=== PATIENT | male | born 1955 | race Two or more races ===

== ENCOUNTER → 2020-01-15 | Emergency (ER) | payer OTHER ==
[~2020-01-15] VITALS: Ht 180.3 cm; Wt 127.0 kg
[~2020-01-15] MED LIST: AMLO10TA13 PO; DICL75TA2 PO; FLUCONAZOLE 200MG/100ML 100 ML IV ONE; GLIP10TA9 PO; HYDR25TA4 PO; IRBE300T26 PO; METO-158 PO; OMEP20TA44 PO; POTASSIUM EFFERVESENT TAB 25 MEQ PO ONE; SITA50TA13 PO; cefTRIAXone 1GM/50ML D5W 50 ML IV ONE
[2020-01-15 13:07] LABS: Basophils # (auto) 0 10 ^3/uL (0-0.2); Basophils % (auto) 0.4 % (0.0-2.0); Eosinophils # (auto) 0.1 10 ^3/uL (0-0.8); Hematocrit 37.7 % (41.0-53.0); Hemoglobin 12.8 g/dL (13.5-17.5); Mean Corpuscular Hemoglobin 29.8 pg (28.0-32.0); Mean Corpuscular Hgb Conc. 33.9 g/dL (32.0-36.0); Mean Corpuscular Volume 87.8 fL (80.0-100.0); Monocytes # (auto) 0.5 10 ^3/uL (0-1.3); Monocytes % (auto) 8.2 % (0.0-12.0); Neutrophils # (auto) 4.2 10 ^3/uL (1.6-8.6); Neutrophils % (auto) 73.4 % (37.0-80.0); Nucleated Red Blood Cells % 0.2 %; Platelet Count (auto) 144 10^3/uL (140-450); Red Blood Cells 4.29 10^6/uL (4.5-5.90); White Blood Cell 5.7 10^3/uL (4.4-10.8)
[2020-01-15 13:25] LABS: Albumin 2.7 g/dL (3.4-5.0); Calcium 8.4 mg/dL (8.5-10.1); Potassium 3.2 mmol/L (3.5-5.1)
[2020-01-15 13:28] LABS: BUN/Creatinine Ratio 14.1; Total Protein 6.4 g/dL (6.4-8.2)
[2020-01-15 14:16] LABS: Urine Bacteria NONE SEEN /hpf (None Seen); Urine Blood TRACE /uL (Negative); Urine Specific Gravity 1.012 (1.001-1.035); Urine WBC 1 /hpf (0 - 3)
[2020-01-15 14:52] VITALS: BP 160/81
== END | disposition home or self-care (01) ==
LOC: ER 10:42
DX: N45.1 Epididymitis (principal); B35.6 Tinea cruris; B37.89 Other sites of candidiasis; E11.21 Type 2 diabetes mellitus with diabetic nephropathy; E11.65 Type 2 diabetes mellitus with hyperglycemia; I10 Essential (primary) hypertension; E87.6 Hypokalemia; E78.5 Hyperlipidemia, unspecified; E46 Unspecified protein-calorie malnutrition; Z68.31 Body mass index [BMI] 31.0-31.9, adult; Z87.891 Personal history of nicotine dependence; Z79.899 Other long term (current) drug therapy
CPT/HCPCS: 36415; 76870; 80053; 81001; 83605; 85025; 87040; 96365; 96367; 99284; J0696; J1450

== ENCOUNTER 2020-10-27 08:27 | Observation (INO) | payer OTHER ==
[~2020-10-27] VITALS: Ht 170.2 cm; Wt 133.5 kg
[~2020-10-27 08:27] MED LIST changes: +AMLO-496 PO; -AMLO10TA13 PO; -FLUCONAZOLE 200MG/100ML 100 ML IV ONE; -IRBE300T26 PO; +IRBE300T79 PO; -POTASSIUM EFFERVESENT TAB 25 MEQ PO ONE; -cefTRIAXone 1GM/50ML D5W 50 ML IV ONE
[2020-10-27 09:00] LABS: Basophils # (auto) 0.1 10 ^3/uL (0-0.2); Basophils % (auto) 0.6 % (0.0-2.0); Eosinophils # (auto) 0 10 ^3/uL (0-0.8); Eosinophils % (auto) 0.5 % (0.0-7.0); Hematocrit 36.2 % (41.0-53.0); Hemoglobin 12.2 g/dL (13.5-17.5); Lymphocytes % (auto) 11.4 % (10.0-50.0); Mean Corpuscular Hgb Conc. 33.7 g/dL (32.0-36.0); Mean Corpuscular Volume 89.2 fL (80.0-100.0); Monocytes # (auto) 0.6 10 ^3/uL (0-1.3); Monocytes % (auto) 6.6 % (0.0-12.0); Neutrophils # (auto) 6.9 10 ^3/uL (1.6-8.6); Neutrophils % (auto) 80.9 % (37.0-80.0); Nucleated Red Blood Cells % 0.1 %; Platelet Count (auto) 180 10^3/uL (140-450); Red Blood Cells 4.06 10^6/uL (4.5-5.90); Red Cell Distribution Width 15.6 % (11.8-14.3); White Blood Cell 8.5 10^3/uL (4.4-10.8)
[2020-10-27] MEDS ORDERED: cefTRIAXone 1GM/50ML D5W 50 ML IV ONE (09:00)
[2020-10-27] MEDS ORDERED: AZITHROMYCIN 500MG/ 250ML 250 ML IV ONE (09:00)
[2020-10-27 09:14] LABS: Albumin 3.3 g/dL (3.4-5.0); Calcium 8.3 mg/dL (8.5-10.1); Magnesium 2.3 mg/dL (1.6-2.6); Potassium 3.4 mmol/L (3.5-5.1)
[2020-10-27 09:17] LABS: Lactic Acid w/Reflex 2.8 mmol/L (0.4-2.0)
[2020-10-27 09:22] LABS: INR 1.03 (0.9-1.15); Partial Thromboplastin Time 23.8 sec (23.0-31.2)
[2020-10-27 09:23] LABS: BUN/Creatinine Ratio 15.1; Bilirubin, Total 0.6 mg/dL (0.2-1.0); CRP High Sensitivity 1.56 mg/dL (< 0.3); Total Protein 7.2 g/dL (6.4-8.2)
[2020-10-27] MEDS ORDERED: DEXTROSE (50%) 50ML SYRG IV PRN (11:30)
[2020-10-27] MEDS ORDERED: MORPHINE SULF INJ 2 MG/ML SYRINGE 1ML IV PRN (11:30)
[2020-10-27] MEDS ORDERED: NITROGLYCERIN 0.4 MG SL TAB SL PRN (11:30)
[2020-10-27] MEDS ORDERED: hydrALAZINE HCL 20 MG/ML VL IV PRN (11:45)
[2020-10-27] MEDS ORDERED: FUROSEMIDE 40 MG/4 ML VIAL IV ONE (11:45)
[2020-10-27] MEDS: InsuLIN REG 1unit/0.01ml Soln (100units/ml) SC SCH ×3 (12:14→23:34)
[2020-10-27] MEDS: ACCU-CHEK COMFORT CURVE STRIP VI SCH ×3 (12:14→22:00)
[2020-10-27] MEDS ORDERED: MECL-111 PO (12:47)
[2020-10-27 17:00] VITALS: BP 151/88
[2020-10-27 21:47] VITALS: BP 149/68
[2020-10-28 05:08] VITALS: BP 153/72
[2020-10-28 06:13] LABS: Basophils # (auto) 0 10 ^3/uL (0-0.2); Basophils % (auto) 0.3 % (0.0-2.0); Eosinophils # (auto) 0.1 10 ^3/uL (0-0.8); Eosinophils % (auto) 0.7 % (0.0-7.0); Hematocrit 33.5 % (41.0-53.0); Hemoglobin 11.6 g/dL (13.5-17.5); Lymphocytes # (auto) 0.8 10 ^3/uL (0.4-5.4); Lymphocytes % (auto) 11.3 % (10.0-50.0); Mean Corpuscular Hemoglobin 30.6 pg (28.0-32.0); Mean Corpuscular Hgb Conc. 34.6 g/dL (32.0-36.0); Mean Corpuscular Volume 88.6 fL (80.0-100.0); Monocytes # (auto) 0.5 10 ^3/uL (0-1.3); Monocytes % (auto) 7.8 % (0.0-12.0); Neutrophils # (auto) 5.5 10 ^3/uL (1.6-8.6); Neutrophils % (auto) 79.9 % (37.0-80.0); Nucleated Red Blood Cells % 0.1 %; Platelet Count (auto) 170 10^3/uL (140-450); Red Blood Cells 3.78 10^6/uL (4.5-5.90); Red Cell Distribution Width 15.1 % (11.8-14.3); White Blood Cell 6.9 10^3/uL (4.4-10.8)
[2020-10-28 06:33] LABS: Calcium 8.3 mg/dL (8.5-10.1); Potassium 3.3 mmol/L (3.5-5.1)
[2020-10-28 06:35] LABS: BUN/Creatinine Ratio 17.9
[2020-10-28] MEDS: InsuLIN REG 1unit/0.01ml Soln (100units/ml) SC SCH ×4 (06:49→21:33)
[2020-10-28] MEDS: ACCU-CHEK COMFORT CURVE STRIP VI SCH ×4 (06:49→21:33)
[2020-10-28 08:00] VITALS: BP 155/74
[2020-10-28] MEDS: LOSARTAN POTASSIUM 50 MG TAB PO SCH (08:42)
[2020-10-28] MEDS: cefTRIAXone 1GM/50ML D5W 50 ML IV SCH (08:42)
[2020-10-28] MEDS: AZITHROMYCIN 500MG/ 250ML 250 ML IV SCH (08:42)
[2020-10-28] MEDS: HCTZ 25 MG TAB PO SCH (08:43)
[2020-10-28] MEDS: METOPROLOL TARTRATE 50 MG TAB PO SCH (08:43)
[2020-10-28] MEDS: PANTOPRAZOLE 40 MG TAB PO SCH (08:44)
[2020-10-28] MEDS: amLODIPine BESYLATE 5 MG TAB PO SCH (08:44)
[2020-10-28 09:00] VITALS: BP 155/74
[2020-10-28 12:37] VITALS: BP 151/61
[2020-10-28 16:38] VITALS: BP 179/77
[2020-10-28 22:00] VITALS: BP 143/65
[2020-10-29 05:00] VITALS: BP 138/77
[2020-10-29] MEDS ORDERED: METOPROLOL TARTRATE 50 MG TAB PO ONE (05:00)
[2020-10-29 06:00] LABS: Calcium 8.5 mg/dL (8.5-10.1); Potassium 3.3 mmol/L (3.5-5.1)
[2020-10-29 06:03] LABS: BUN/Creatinine Ratio 14.3
[2020-10-29 06:19] LABS: Basophils # (auto) 0 10 ^3/uL (0-0.2); Basophils % (auto) 0.4 % (0.0-2.0); Eosinophils # (auto) 0 10 ^3/uL (0-0.8); Eosinophils % (auto) 0.5 % (0.0-7.0); Hematocrit 34.8 % (41.0-53.0); Hemoglobin 12.2 g/dL (13.5-17.5); Lymphocytes % (auto) 16.5 % (10.0-50.0); Mean Corpuscular Hemoglobin 30.7 pg (28.0-32.0); Mean Corpuscular Volume 87.7 fL (80.0-100.0); Monocytes # (auto) 0.5 10 ^3/uL (0-1.3); Monocytes % (auto) 9.1 % (0.0-12.0); Neutrophils # (auto) 4.3 10 ^3/uL (1.6-8.6); Neutrophils % (auto) 73.5 % (37.0-80.0); Platelet Count (auto) 179 10^3/uL (140-450); Red Blood Cells 3.97 10^6/uL (4.5-5.90); Red Cell Distribution Width 15.2 % (11.8-14.3); White Blood Cell 5.8 10^3/uL (4.4-10.8)
[2020-10-29] MEDS: InsuLIN REG 1unit/0.01ml Soln (100units/ml) SC SCH ×2 (06:19→11:30)
[2020-10-29] MEDS: ACCU-CHEK COMFORT CURVE STRIP VI SCH ×2 (06:19→11:30)
[2020-10-29 08:00] VITALS: BP 140/80
[2020-10-29 09:00] VITALS: BP 140/80
[2020-10-29] MEDS: amLODIPine BESYLATE 5 MG TAB PO SCH (10:35)
[2020-10-29] MEDS: PANTOPRAZOLE 40 MG TAB PO SCH (10:36)
[2020-10-29] MEDS: METOPROLOL TARTRATE 50 MG TAB PO SCH (10:37)
[2020-10-29] MEDS: HCTZ 25 MG TAB PO SCH (10:38)
[2020-10-29] MEDS: LOSARTAN POTASSIUM 50 MG TAB PO SCH (10:38)
[2020-10-29] MEDS: AZITHROMYCIN 500MG/ 250ML 250 ML IV SCH (10:39)
[2020-10-29] MEDS: cefTRIAXone 1GM/50ML D5W 50 ML IV SCH (10:40)
[2020-10-29 13:11] VITALS: BP 137/73
[2020-10-29 17:00] VITALS: BP 120/83
[2020-10-29 18:11] VITALS: BP 120/83
== END 2020-10-29 19:00 | disposition home or self-care (01) ==
LOC: ER 08:27 → TELE 08:28 → TELE-EAST 12:40 → TELE-CENTR 17:50
PROVIDERS: ADMIT Internal Medicine; ATTEND Internal Medicine
DX: J90 Pleural effusion, not elsewhere classified (principal); Z20.822 Contact with and (suspected) exposure to COVID-19; J18.9 Pneumonia, unspecified organism; J96.01 Acute respiratory failure with hypoxia; J96.02 Acute respiratory failure with hypercapnia; E66.01 Morbid (severe) obesity due to excess calories; E11.9 Type 2 diabetes mellitus without complications; E78.5 Hyperlipidemia, unspecified; I11.0 Hypertensive heart disease with heart failure; I50.9 Heart failure, unspecified; Z87.891 Personal history of nicotine dependence; Z85.528 Personal history of other malignant neoplasm of kidney; Z90.5 Acquired absence of kidney; Z79.84 Long term (current) use of oral hypoglycemic drugs; Z79.899 Other long term (current) drug therapy; Z68.42 Body mass index [BMI] 45.0-49.9, adult
CPT/HCPCS: 36415; 36600; 71045; 71250; 76942; 80048; 80053; 82728; 82805; 82962; 83605; 83615; 83735; 83880; 83986; 84484; 85025; 85610; 85730; 86141; 87040; 87205; 87426; 89051; 93005; 96365; 96366; 96368; 96372; 96375; 99291; C1729; G0378; J0360; J0456; J0696; J1815; J1940; J7030; U0003

== ENCOUNTER 2021-04-03 00:20 | Observation (INO) | payer OTHER ==
[~2021-04-03] VITALS: Ht 170.2 cm; Wt 58.6 kg
[~2021-04-03 00:20] MED LIST changes: +MECL-111 PO
[2021-04-03 01:08] LABS: Basophils # (auto) 0 10 ^3/uL (0-0.2); Basophils % (auto) 0.2 % (0.0-2.0); Eosinophils # (auto) 0 10 ^3/uL (0-0.8); Eosinophils % (auto) 0.3 % (0.0-7.0); Hematocrit 37.7 % (41.0-53.0); Hemoglobin 13.2 g/dL (13.5-17.5); Lymphocytes % (auto) 10.6 % (10.0-50.0); Mean Corpuscular Hemoglobin 31.6 pg (28.0-32.0); Mean Corpuscular Hgb Conc. 34.9 g/dL (32.0-36.0); Mean Corpuscular Volume 90.5 fL (80.0-100.0); Monocytes # (auto) 0.4 10 ^3/uL (0-1.3); Monocytes % (auto) 4.6 % (0.0-12.0); Neutrophils # (auto) 7.7 10 ^3/uL (1.6-8.6); Neutrophils % (auto) 84.3 % (37.0-80.0); Nucleated Red Blood Cells % 0.1 %; Red Blood Cells 4.16 10^6/uL (4.5-5.90); Red Cell Distribution Width 15.8 % (11.8-14.3); White Blood Cell 9.1 10^3/uL (4.4-10.8)
[2021-04-03 01:25] LABS: Albumin 2.9 g/dL (3.4-5.0); BUN/Creatinine Ratio 19.4; Calcium 8.6 mg/dL (8.5-10.1); Magnesium 2.2 mg/dL (1.6-2.6); Potassium 3.7 mmol/L (3.5-5.1)
[2021-04-03 01:30] LABS: Bilirubin, Total 0.8 mg/dL (0.2-1.0); Total Protein 6.7 g/dL (6.4-8.2)
[2021-04-03 03:59] LABS: Urine Bacteria NONE SEEN /hpf (None Seen); Urine Blood TRACE /uL (Negative); Urine Specific Gravity 1.019 (1.001-1.035); Urine WBC 2 /hpf (0 - 3)
[2021-04-03] MEDS ORDERED: ASPirin 325 MG TAB PO ONE (04:30)
[2021-04-03] MEDS: ALBUTEROL SULF 2.5 MG/0.5ML(0.5%) NEB SOLN NEB SCH ×2 (06:00→12:16)
[2021-04-03] MEDS ORDERED: ALBUMIN 25% 100 ML IV ONE (06:00)
[2021-04-03] MEDS ORDERED: NITROGLYCERIN 0.4 MG SL TAB SL PRN (06:00)
[2021-04-03] MEDS: IPRATROPIUM BROM 0.5 MG/2.5ML INH SOL NEB SCH ×2 (06:00→12:16)
[2021-04-03] MEDS ORDERED: DEXTROSE (50%) 50ML SYRG IV PRN (06:00)
[2021-04-03] MEDS ORDERED: ONDANSETRON HCL 4 MG/2 ML VIAL IV PRN (06:00)
[2021-04-03] MEDS ORDERED: MORPHINE SULFATE INJECTION 2 MG/ML SYRG IV PRN (06:00)
[2021-04-03] MEDS: FUROSEMIDE 40 MG/4 ML VIAL IV SCH ×2 (06:00→14:30)
[2021-04-03 06:18] VITALS: BP 154/80
[2021-04-03] MEDS: InsuLIN REG 1unit/0.01ml Soln (100units/ml) SC SCH ×2 (07:00→12:26)
[2021-04-03] MEDS: ACCU-CHEK COMFORT CURVE STRIP VI SCH ×2 (07:23→12:26)
[2021-04-03 08:38] LABS: INR 1.04 (0.9-1.15)
[2021-04-03] MEDS ORDERED: ENOXAPARIN SOD 40 MG/0.4 ML SYRINGE SC SCH (10:00)
[2021-04-03] MEDS ORDERED: METOPROLOL TARTRATE 50 MG TAB PO SCH (10:00)
[2021-04-03] MEDS ORDERED: HCTZ 25 MG TAB PO SCH (10:00)
[2021-04-03] MEDS ORDERED: amLODIPine BESYLATE 5 MG TAB PO SCH (10:00)
[2021-04-03] MEDS: levoFLOXacin 500MG 100 ML IV SCH ×2 (11:42→12:21)
[2021-04-03 14:31] VITALS: BP 161/74
[2021-04-03] MEDS ORDERED: InsuLIN REG 1unit/0.01ml Soln (100units/ml) SC SCH (22:00)
== END 2021-04-03 14:50 | disposition home or self-care (01) ==
LOC: ER 00:22 → TELE 05:47 → INTOOBSV 05:47 → TELE 14:50
PROVIDERS: ADMIT Internal Medicine; ATTEND Internal Medicine
DX: J90 Pleural effusion, not elsewhere classified (principal); Z20.822 Contact with and (suspected) exposure to COVID-19; R77.8 Other specified abnormalities of plasma proteins; R07.89 Other chest pain; R06.02 Shortness of breath; I11.9 Hypertensive heart disease without heart failure; E11.9 Type 2 diabetes mellitus without complications; E78.5 Hyperlipidemia, unspecified; E66.01 Morbid (severe) obesity due to excess calories; D84.9 Immunodeficiency, unspecified; Z79.84 Long term (current) use of oral hypoglycemic drugs; Z87.891 Personal history of nicotine dependence; Z68.20 Body mass index [BMI] 20.0-20.9, adult
CPT/HCPCS: 36415; 71045; 71250; 76604; 76942; 80053; 81001; 82962; 83605; 83735; 83880; 83986; 84484; 85025; 85379; 85610; 87205; 87426; 88104; 88305; 88342; 89051; 93005; 93306; 94640; 96365; 96366; 96367; 96372; 96375; 99285; C1729; C9803; G0378; J1650; J1940; J1956; J7644; P9047; U0003

== ENCOUNTER 2021-09-25 18:56 | Observation (INO) | payer OTHER ==
[~2021-09-25] VITALS: Ht 180.3 cm; Wt 135.6 kg
[2021-09-25 21:19] LABS: Basophils # (auto) 0 10 ^3/uL (0-0.2); Basophils % (auto) 0.4 % (0.0-2.0); Eosinophils # (auto) 0 10 ^3/uL (0-0.8); Eosinophils % (auto) 0.1 % (0.0-7.0); Hematocrit 37.8 % (41.0-53.0); Lymphocytes # (auto) 0.8 10 ^3/uL (0.4-5.4); Lymphocytes % (auto) 11.7 % (10.0-50.0); Mean Corpuscular Hemoglobin 30.4 pg (28.0-32.0); Mean Corpuscular Hgb Conc. 34.3 g/dL (32.0-36.0); Mean Corpuscular Volume 88.6 fL (80.0-100.0); Monocytes # (auto) 0.6 10 ^3/uL (0-1.3); Monocytes % (auto) 8.6 % (0.0-12.0); Neutrophils # (auto) 5.4 10 ^3/uL (1.6-8.6); Neutrophils % (auto) 79.2 % (37.0-80.0); Nucleated Red Blood Cells % 0.1 %; Red Blood Cells 4.27 10^6/uL (4.5-5.90); White Blood Cell 6.9 10^3/uL (4.4-10.8)
[2021-09-25] MEDS ORDERED: DEXTROSE (50%) 50ML SYRG IV ONE (21:30)
[2021-09-25 21:37] LABS: Albumin 3.2 g/dL (3.4-5.0); Calcium 8.5 mg/dL (8.5-10.1); Potassium 3.6 mmol/L (3.5-5.1)
[2021-09-25 21:40] LABS: BUN/Creatinine Ratio 13.4; Bilirubin, Total 1.2 mg/dL (0.2-1.0); Total Protein 7.1 g/dL (6.4-8.2)
[2021-09-25] MEDS ORDERED: DEXTROSE 10% 1,000 ML IV ONE ×2 (21:45→23:30)
[2021-09-25 22:20] LABS: Urine Bacteria NONE SEEN /hpf (None Seen); Urine Blood TRACE /uL (Negative); Urine Specific Gravity 1.011 (1.001-1.035); Urine WBC 1 /hpf (0 - 3)
[2021-09-26] MEDS ORDERED: DEXTROSE 10% 1,000 ML IV ONE ×3 (01:15→14:45)
[2021-09-26] MEDS ORDERED: hydrALAZINE HCL 20 MG/ML VL IV PRN (05:30)
[2021-09-26] MEDS ORDERED: ONDANSETRON HCL 4 MG/2 ML VIAL IV PRN (05:30)
[2021-09-26] MEDS ORDERED: MORPHINE SULFATE INJECTION 2 MG/ML SYRG IV PRN (05:30)
[2021-09-26] MEDS ORDERED: NITROGLYCERIN 0.4 MG SL TAB SL PRN (05:30)
[2021-09-26] MEDS ORDERED: DEXTROSE 50% SYRINGE 0 ML IV ONE (06:26)
[2021-09-26 06:48] LABS: BUN/Creatinine Ratio 12.6; Calcium 8.6 mg/dL (8.5-10.1)
[2021-09-26] MEDS: ACCU-CHEK COMFORT CURVE STRIP VI SCH ×11 (07:16→18:22)
[2021-09-26] MEDS ORDERED: ENOXAPARIN SOD 40 MG/0.4 ML SYRINGE SC SCH (10:00)
[2021-09-26] MEDS ORDERED: ASCORBIC ACID 500 MG TAB PO SCH (10:00)
[2021-09-26] MEDS ORDERED: HCTZ 25 MG TAB PO SCH (10:00)
[2021-09-26] MEDS ORDERED: CHOLECALCIFEROL (VITD3) 2,000 UNIT CAP/TAB PO SCH (10:00)
[2021-09-26] MEDS ORDERED: OMEPRAZOLE 20 MG CAP PO SCH (10:00)
[2021-09-26] MEDS ORDERED: amLODIPine BESYLATE 5 MG TAB PO SCH (10:00)
[2021-09-26] MEDS ORDERED: ZINC SULFATE 220mg CAP or TAB PO SCH (10:00)
[2021-09-26] MEDS: DEXTROSE (50%) 50ML SYRG IV PRN ×2 (12:03→13:19)
[2021-09-26 17:45] VITALS: BP 165/77
[2021-09-27] MEDS ORDERED: PANTOPRAZOLE 40 MG TAB PO SCH (10:00)
== END 2021-09-26 18:55 | disposition home or self-care (01) ==
LOC: ER 18:58 → TELE 09-26 05:20
PROVIDERS: ADMIT Hospitalist; ATTEND Hospitalist
DX: U07.1 COVID-19 (principal); E11.649 Type 2 diabetes mellitus with hypoglycemia without coma; E66.01 Morbid (severe) obesity due to excess calories; I11.0 Hypertensive heart disease with heart failure; I50.9 Heart failure, unspecified; K21.9 Gastro-esophageal reflux disease without esophagitis; E78.00 Pure hypercholesterolemia, unspecified; D84.9 Immunodeficiency, unspecified; Z90.5 Acquired absence of kidney; Z79.899 Other long term (current) drug therapy; Z68.41 Body mass index [BMI] 40.0-44.9, adult
CPT/HCPCS: 36415; 71045; 80048; 80053; 81001; 82962; 83036; 83735; 85025; 85379; 87426; 93005; 96361; 96372; 96374; 96375; 96376; 99285; G0378; J0360; J1650; J7042; U0003

== ENCOUNTER 2024-05-24 14:56 | Inpatient (IN) | payer OTHER ==
[~2024-05-24] VITALS: Ht 170.2 cm; Wt 118.8 kg
[~2024-05-24 14:56] MED LIST changes: -AMLO-496 PO; +AMLO1TAB23 PO; -DICL75TA2 PO; -GLIP10TA9 PO; -MECL-111 PO; +MECL-126 PO; -SITA50TA13 PO
[2024-05-24 15:12] LABS: Basophils # (auto) 0.1 10 ^3/uL (0-0.2); Basophils % (auto) 0.6 % (0.0-2.0); Eosinophils # (auto) 0.1 10 ^3/uL (0-0.8); Eosinophils % (auto) 0.8 % (0.0-7.0); Hematocrit 41.4 % (41.0-53.0); Hemoglobin 13.8 g/dL (13.5-17.5); Lymphocytes # (auto) 1.1 10 ^3/uL (0.4-5.4); Lymphocytes % (auto) 12.6 % (10.0-50.0); Mean Corpuscular Hemoglobin 28.1 pg (28.0-32.0); Mean Corpuscular Hgb Conc. 33.3 g/dL (32.0-36.0); Mean Corpuscular Volume 84.4 fL (80.0-100.0); Monocytes # (auto) 0.7 10 ^3/uL (0-1.3); Monocytes % (auto) 7.4 % (0.0-12.0); Neutrophils % (auto) 78.6 % (37.0-80.0); Nucleated Red Blood Cells % 0.2 %; Platelet Count (auto) 162 10^3/uL (140-450); Red Blood Cells 4.91 10^6/uL (4.5-5.90); Red Cell Distribution Width 16.4 % (11.8-14.3); White Blood Cell 8.8 10^3/uL (4.4-10.8)
[2024-05-24 15:30] LABS: Alanine Aminotransferase 82 U/L (7-40); Albumin 4.3 g/dL (3.2-4.8); Alkaline Phosphatase 84 U/L (46-116); Anion Gap 7 (5-15); Aspartate Aminotransferase 34 U/L (13-40); BUN/Creatinine Ratio 16.1 (10.0-20.0); Bilirubin, Total 0.8 mg/dL (0.2-1.0); Blood Urea Nitrogen 26 mg/dL (9-23); Calcium 9.5 mg/dL (8.7-10.4); Carbon Dioxide 28 mmol/L (20-31); Chloride 106 mmol/L (98-107); Glucose 182 mg/dL (74-106); Potassium 3.5 mmol/L (3.5-5.1); Sodium 141 mmol/L (136-145); Total Protein 6.6 g/dL (5.7-8.2)
[2024-05-24] MEDS ORDERED: hydrALAZINE HCL 20 MG/ML VL IV PRN (16:00)
[2024-05-24] MEDS: ASPirin 81 mg TAB PO ONE (16:06)
[2024-05-24 18:05] LABS: COVID19 ANTIGEN SOFIA FIA NEGATIVE (NEGATIVE)
[2024-05-24 18:06] LABS: Rapid Influenza A Negative (Negative); Rapid Influenza B Negative (Negative)
[2024-05-24] MEDS: NITROGLYCERIN 0.4 MG SL TAB SL ONE (18:42)
[2024-05-24] MEDS: IOHEXOL 350 MG/ML 100ML IJ ONE (21:12)
[2024-05-25 09:44] VITALS: PULSE 74; O2SAT 92
[2024-05-25] MEDS ORDERED: NITROGLYCERIN 0.4 MG SL TAB SL PRN (12:15)
[2024-05-25] MEDS: FUROSEMIDE 100 MG/10ML VIAL IV ONE (15:34)
[2024-05-25 18:08] VITALS: BP 180/82; PULSE 67; RESP 21; TEMP 98.2; O2SAT 94
[2024-05-25 19:50] VITALS: BP 115/79; PULSE 69
[2024-05-25 20:00] VITALS: PULSE 72; PULSE 80; RESP 20; O2SAT 93
[2024-05-25 21:00] VITALS: BP 144/81; PULSE 70; RESP 20; TEMP 97.9; O2SAT 93
[2024-05-25] MEDS: ATORVASTATIN 20 MG TAB PO SCH (21:59)
[2024-05-25 22:00] VITALS: PULSE 80; RESP 20; O2SAT 93
[2024-05-25] MEDS: FUROSEMIDE 40 MG/4 ML VIAL IV ONE (22:00)
[2024-05-26] VITALS (8 sets, daily range): BP systolic 113–167; BP diastolic 59–81; PULSE 64–76; RESP 16–22; TEMP 97.3–99.6; O2SAT 94–97
[2024-05-26] MEDS: cloNIDine HCL 0.1 MG TAB PO ONE (00:42)
[2024-05-26 02:03] LABS: Urine Bacteria None Seen /hpf (None Seen); Urine WBC None Seen /hpf (0 - 3)
[2024-05-26 02:13] LABS: Urine Blood TRACE /uL (Negative); Urine Clarity Clear (Clear); Urine Color Colorless (Yellow); Urine Protein, UAD TRACE (Negative); Urine Specific Gravity 1.006 (1.001-1.035); Urine Urobilinogen Normal (Negative); Urine pH 6.5 (5.0-9.0)
[2024-05-26 02:23] LABS: Protein, Urine 26.4 mg/dL (1-14)
[2024-05-26 02:26] LABS: Creatinine, Urine 15.59 mg/dL (30.0-125.0); Urine Protein/Creatinine Ratio 1.69
[2024-05-26 06:06] LABS: Basophils # (auto) 0 10 ^3/uL (0-0.2); Basophils % (auto) 0.3 % (0.0-2.0); Eosinophils # (auto) 0 10 ^3/uL (0-0.8); Eosinophils % (auto) 0.8 % (0.0-7.0); Hematocrit 36.9 % (41.0-53.0); Hemoglobin 12.9 g/dL (13.5-17.5); Lymphocytes # (auto) 1.2 10 ^3/uL (0.4-5.4); Lymphocytes % (auto) 19.9 % (10.0-50.0); Mean Corpuscular Volume 82.9 fL (80.0-100.0); Monocytes # (auto) 0.6 10 ^3/uL (0-1.3); Monocytes % (auto) 9.5 % (0.0-12.0); Neutrophils # (auto) 4.2 10 ^3/uL (1.6-8.6); Neutrophils % (auto) 69.5 % (37.0-80.0); Nucleated Red Blood Cells % 0.2 %; Platelet Count (auto) 143 10^3/uL (140-450); Red Blood Cells 4.45 10^6/uL (4.5-5.90); White Blood Cell 6.1 10^3/uL (4.4-10.8)
[2024-05-26 06:40] LABS: Alanine Aminotransferase 52 U/L (7-40); Albumin 3.7 g/dL (3.2-4.8); Alkaline Phosphatase 55 U/L (46-116); Anion Gap 9 (5-15); Aspartate Aminotransferase 27 U/L (13-40); BUN/Creatinine Ratio 11.2 (10.0-20.0); Bilirubin, Total 1.1 mg/dL (0.2-1.0); Blood Urea Nitrogen 16 mg/dL (9-23); Calcium 9.3 mg/dL (8.7-10.4); Carbon Dioxide 29 mmol/L (20-31); Chloride 102 mmol/L (98-107); Glucose 103 mg/dL (74-106); Potassium 2.7 mmol/L (3.5-5.1); Sodium 140 mmol/L (136-145); Total Protein 6.1 g/dL (5.7-8.2)
[2024-05-26] MEDS ORDERED: OMEPRAZOLE 20 MG PO SCH (10:00)
[2024-05-26] MEDS ORDERED: PATIENTS OWN MEDICATION (Amlodipine Besylate 10 MG) PO SCH (10:00)
[2024-05-26] MEDS: EMPAGLIFLOZIN 10 MG TAB PO SCH (11:01)
[2024-05-26] MEDS: PANTOPRAZOLE 40 MG TAB PO SCH (11:01)
[2024-05-26] MEDS: POTASSIUM CHL 20 Meq TABLET PO ONE (11:01)
[2024-05-26] MEDS: METOPROLOL TARTRATE 50 MG TAB PO SCH (11:01)
[2024-05-26] MEDS: amLODIPine BESYLATE 5 MG TAB PO SCH (11:02)
[2024-05-26] MEDS: ENOXAPARIN SOD 40 MG/0.4 ML SYRINGE SC SCH (11:03)
[2024-05-26] MEDS ORDERED: CARV25TA55 PO (11:20)
[2024-05-26] MEDS ORDERED: IRBE300T43 PO (11:20)
[2024-05-26] MEDS ORDERED: EMPA1TAB PO (11:20)
[2024-05-26] MEDS ORDERED: GLIP10TA9 PO (11:20)
[2024-05-26] MEDS ORDERED: METF-370 PO (11:20)
[2024-05-26] MEDS ORDERED: HYDR50TA47 PO (11:22)
[2024-05-26] MEDS ORDERED: ATOR20TA PO (11:22)
[2024-05-26] MEDS: MAGNESIUM SULFATE 1GM/100ML 100 ML IV ONE (13:32)
[2024-05-26] MEDS ORDERED: DEXTROSE (50%) 50ML SYRG IV PRN (14:30)
[2024-05-26] MEDS: POTASSIUM CHL 20MEQ/100ML 100 ML IV ONE (14:51)
[2024-05-26] MEDS: ACCU-CHEK COMFORT CURVE STRIP VI SCH (17:17)
[2024-05-26] MEDS: InsuLIN REG 1unit/0.01ml Soln (100units/ml) SC SCH (17:48)
[2024-05-26] MEDS: SPIRONOLACTONE 25 MG TAB PO ONE (18:10)
[2024-05-26] MEDS: SACUBITRIL-VALSARTAN 24mg/26mg TAB PO SCH (18:10)
[2024-05-27] VITALS (8 sets, daily range): BP systolic 113–174; BP diastolic 55–87; PULSE 65–79; RESP 16–20; TEMP 98.1–99; O2SAT 93–96
[2024-05-27 06:34] LABS: Carbon Dioxide 27 mmol/L (20-31); Chloride 103 mmol/L (98-107); Potassium 3.2 mmol/L (3.5-5.1)
[2024-05-27 06:35] LABS: Anion Gap 10 (5-15); Sodium 140 mmol/L (136-145)
[2024-05-27 06:36] LABS: Calcium 9.5 mg/dL (8.7-10.4)
[2024-05-27 06:40] LABS: Glucose 117 mg/dL (74-106)
[2024-05-27 06:41] LABS: BUN/Creatinine Ratio 11.7 (10.0-20.0); Blood Urea Nitrogen 15 mg/dL (9-23)
[2024-05-27] MEDS: POTASSIUM EFFERVESENT TAB 25 MEQ PO ONE (10:08)
[2024-05-27] MEDS: FUROSEMIDE 20 MG TAB PO SCH (10:10)
[2024-05-27] MEDS: SPIRONOLACTONE 25 MG TAB PO SCH (11:53)
[2024-05-27] MEDS: SACUBITRIL-VALSARTAN 24mg/26mg TAB PO ONE (11:55)
[2024-05-27] MEDS: NIFEdipine ER 30 MG TAB PO ONE (11:55)
[2024-05-27] MEDS: FUROSEMIDE 20 MG/2 ML VIAL IV ONE (15:17)
[2024-05-27] MEDS: NIFEdipine ER 30 MG TAB PO SCH (15:18)
[2024-05-27] MEDS ORDERED: FUROSEMIDE 40 MG TAB PO SCH (18:00)
[2024-05-27] MEDS: FUROSEMIDE 40 MG/4 ML VIAL IV SCH (18:08)
[2024-05-27] MEDS ORDERED: SACUBITRIL-VALSARTAN 24mg/26mg TAB PO SCH (22:00)
[2024-05-27] MEDS: SACUBITRIL-VALSARTAN 24mg/26mg TAB PO SCH (22:18)
[2024-05-28 01:00] VITALS: BP 128/68; PULSE 87; RESP 20; TEMP 98.3; O2SAT 93
[2024-05-28 05:00] VITALS: BP 116/74; PULSE 87; RESP 17; TEMP 98.3; O2SAT 92
[2024-05-28 07:14] LABS: Anion Gap 15 (5-15); Calcium 9.8 mg/dL (8.7-10.4); Carbon Dioxide 25 mmol/L (20-31); Chloride 100 mmol/L (98-107); Sodium 140 mmol/L (136-145)
[2024-05-28 07:20] LABS: BUN/Creatinine Ratio 11.3 (10.0-20.0); Blood Urea Nitrogen 18 mg/dL (9-23); Glucose 167 mg/dL (74-106)
[2024-05-28 08:40] VITALS: BP 133/68; PULSE 81; RESP 17; TEMP 98; O2SAT 94
[2024-05-28] MEDS ORDERED: NIFEdipine ER 30 MG TAB PO SCH (10:00)
[2024-05-28] MEDS: POTASSIUM EFFERVESENT TAB 25 MEQ GT ONE (10:19)
[2024-05-28] MEDS: POTASSIUM EFFERVESENT TAB 25 MEQ PO SCH (10:20)
[2024-05-28] MEDS: POTASSIUM CHL 20 Meq TABLET PO ONE (10:20)
[2024-05-28] MEDS ORDERED: POTA8TAB38 PO (11:42)
[2024-05-28] MEDS ORDERED: FURO1TAB33 PO (11:42)
[2024-05-28 13:19] VITALS: BP 118/53; PULSE 89; RESP 18; TEMP 98.1; O2SAT 94
[2024-05-28] MEDS ORDERED: FUROSEMIDE 20 MG TAB PO SCH (18:00)
== END 2024-05-28 14:00 | disposition home or self-care (01) | DRG 280 ==
LOC: ER 14:56 → TELE 05-25 12:20 → EAST 05-25 12:20 → TELE-E-ADS 05-26 06:40 → EAST 05-28 01:53
PROVIDERS: ADMIT Nurse Practitioner Family; ATTEND Nurse Practitioner Acute Care
DX: I13.0 Hypertensive heart and chronic kidney disease with heart failure and stage 1 through stage 4 chronic kidney disease, or unspecified chronic kidney disease (principal); I50.43 Acute on chronic combined systolic (congestive) and diastolic (congestive) heart failure; I21.A1 Myocardial infarction type 2; J96.01 Acute respiratory failure with hypoxia; N17.0 Acute kidney failure with tubular necrosis; I16.1 Hypertensive emergency; J98.11 Atelectasis; E66.9 Obesity, unspecified; E11.22 Type 2 diabetes mellitus with diabetic chronic kidney disease; E87.6 Hypokalemia; E78.5 Hyperlipidemia, unspecified; I45.10 Unspecified right bundle-branch block; N18.31 Chronic kidney disease, stage 3a; Z90.5 Acquired absence of kidney; Z85.528 Personal history of other malignant neoplasm of kidney; Z87.891 Personal history of nicotine dependence; Z82.49 Family history of ischemic heart disease and other diseases of the circulatory system; Z91.199 Patient's noncompliance with other medical treatment and regimen due to unspecified reason
CPT/HCPCS: 36415; 71045; 71046; 71260; 74177; 76604; 76775; 80048; 80053; 81001; 82570; 82962; 83036; 83735; 83880; 84100; 84156; 84484; 85025; 85379; 87426; 87804; 93005; 93306; 96374; 99291; G0378; J1815; J3480

== ENCOUNTER 2025-04-13 12:40 | Inpatient (IN) | payer MEDICARE, OTHER ==
[~2025-04-13] VITALS: Ht 180.3 cm; Wt 120.4 kg
[~2025-04-13 12:40] MED LIST changes: +ATOR20TA PO; +CARV25TA55 PO; +EMPA1TAB PO; +FURO1TAB33 PO; +GLIP10TA9 PO; +HYDR50TA47 PO; +IRBE300T43 PO; +METF-370 PO; +POTA8TAB38 PO
--- NOTE | 2025-04-13 13:02 | ED.PDOC ---
History of Present Illness HPI Comments 70-year-old male with PMHx DM, HTN, Pleural Effusion Bilaterally presents with a chief complaint of chest pain x onset yesterday morning. Patient states that his pain is localized midsternally, nonradiating, describes as pressure. Patient reports that his pain feels similar to his pleural effusion pain. Patient was last admitted in May 2024 for pleural effusion and respiratory issues. Chief Complaint: Chest Pain Time Seen by MD: 12:53 Primary Care Provider: NONE Reviewed Notes: Medications, Allergies Allergies: Coded Allergies: NO KNOWN ALLERGIES (Unverified , 01/15/20) Home Meds Active Scripts Potassium Chloride (Klor-Con 8) 8 Meq Tab, 8 MEQ PO DAILY for 60 Days, #60 TAB Prov:IVONNE MORE GRAIN I FARMWORKER 05/28/24 Furosemide (Lasix) 20 Mg Tb, 1 TAB PO DAILY, #90 TAB 1 Refill Prov:IVONNE MORE GRAIN I FARMWORKER 05/28/24 Reported Medications Atorvastatin Calcium (Lipitor) 20 Mg Tab, 1 TAB PO BID, #90 TAB 1 Refill 05/26/24 Hydralazine Hcl (Hydralazine Hcl) 50 Mg Tab, 50 MG PO TID for 30 Days, MG 05/26/24 Irbesartan (IRBESARTAN) 300 Mg Tab, 1 TAB PO DAILY, #30 TAB 5 Refills 05/26/24 Metformin Hydrochloride (Metformin Hcl) 500 Mg Tab, 1000 MG PO IBID for 30 Days, MG 05/26/24 Empagliflozin (Jardiance) 10 Mg Tab, 10 MG PO DAILY, TAB 05/26/24 Carvedilol (Carvedilol) 25 Mg Tab, 25 MG PO Q12HR for 30 Days, MG 05/26/24 Glipizide (Glipizide) 10 Mg Tab, 10 MG PO AC for 30 Days, MG 05/26/24 Meclizine HCl (Meclizine Hydrochloride) 25 Mg Tab, 1 TAB PO TID PRN for dizziness 10/27/20 Amlodipine Besylate (Amlodipine Besylate) 10 Mg Tab, 10 MG PO DAILY 05/13/13 Hydrochlorothiazide (Hydrochlorothiazide) 25 Mg Tab, 25 MG PO DAILY 05/13/13 Metoprolol Tartrate (Metoprolol Tartrate) 50 Mg Tab, 50 MG PO DAILY 05/13/13 Irbesartan (Avapro) 300 Mg Tab, 300 MG PO DAILY 05/13/13 Omeprazole ([facility] Omeprazole) 20 Mg Tab, 20 MG PO DAILY 05/13/13 Information Source: Patient Mode of Arrival: Ambulatory Severity: Moderate Timing: Hours Duration: Since onset Prehospital treatment: None Past Medical History PAST MEDICAL HISTORY: Cancer, DM, High Lipids, HTN Surgical History: Hernia Repair Family History Family History: No family hx of DM Social History Smoker: Quit Greater Than 1 Year Alcohol: Occasionally Drugs: Denies Drug Use Lives In: Home Constitutional: denies: chills, diaphoresis, fatigue, fever, malaise, sweats, weakness, others EENTM: denies: blurred vision, double vision, ear bleeding, ear discharge, ear drainage, ear pain, ear ringing, eye pain, eye redness, hearing loss, mouth pain, mouth swelling, nasal discharge, nose bleeding, nose congestion, nose pain, photophobia, tearing, throat pain, throat swelling, voice changes, others Respiratory: denies: cough, hemoptysis, orthopnea, SOB at rest, shortness of breath, SOB with excertion, stridor, wheezing, others Cardiovascular: reports: chest pain; denies: dizzy spells, diaphoresis, Dyspnea on exertion, edema, irregular heart beat, left arm pain, lightheadedness, palpitations, PND, syncope, others Gastrointestinal: denies: abdomen distended, abdominal pain, blood streaked bowels, constipated, diarrhea, dysphagia, difficulty swallowing, hematemesis, melena, nausea, poor appetite, poor fluid intake, rectal bleeding, rectal pain, vomiting, others Genitourinary: denies: burning, dysuria, flank pain, frequency, hematuria, incontinence, penile discharge, penile sore, pain, testicle pain, testicle swelling, urgency, others Neurological: denies: dizziness, fainting, headache, left sided numbness, left sided weakness, numbness, paresthesia, pre-existing deficit, right sided numbness, right sided weakness, seizure, speech problems, tingling, tremors, weakness, others Musculoskeletal: denies: back pain, gout, joint pain, joint swelling, muscle pain, muscle stiffness, neck pain, others Integumetry: denies: bruises, change in color, change in hair/nails, dryness, laceration, lesions, lumps, rash, wounds, others Allergic/Immunocompromised: denies: Difficulty Healing, Frequent Infections, Hives, Itching, others Hematologic/Lymphatic: denies: anemia, blood clots, easy bleeding, easy bruising, swollen glands, others Endocrine: denies: excessive hunger, excessive sweating, excessive thirst, excessive urination, flushing, intolerance to cold, intolerance to heat, unexplained weight gain, unexplained weight loss, others Psychiatric: denies: anxiety, bipolar disorder, depression, hopeless, panic disorder, schizophrenia, sleepless, suicidal, others All Other Systems: Reviewed and Negative Physical Exam General Appearance: No Apparent Distress, Normal HEENT: Normal ENT Inspection, Pharynx Normal, TMs Normal Neck: Full Range of Motion, Non-Tender, Normal, Normal Inspection Respiratory: Chest Non-Tender, Lungs Clear, No Accessory Muscle Use, No Respiratory Distress, Normal Breath Sounds Cardiovascular: No Edema, No JVD, No Murmur, No Gallop, Normal Peripheral Pulses, Regular Rate/Rhythm Breast Exam: Deferred Gastrointestinal: No Organomegaly, Non Tender, No Pulsatile Mass, Normal Bowel Sounds, Soft Genitalia: Deferred Pelvic: Deferred Rectal: Deferred Extremities: No calf tenderness, Normal capillary refill, Normal inspection, Normal range of motion, Non-tender, No pedal edema Musculoskeletal : Apperance: Normal Neurologic: Alert, cleaner signs II-XII nml as Tested, No Motor Deficits, Normal Affect, Normal Mood, No Sensory Deficits Cerebellar Function: Normal Reflexes: Normal Skin: Dry, Normal Color, Warm Lymphatic: No Adenopathy Was a procedure done? Was a procedure done?: No Differential Dx Considerations may include: Acute coronary syndrome, NSTEMI, STEMI, chest wall pain, pneumothorax, pneumonia, PE, GERD, anxiety are all among the differentials. Patient does have elevation of troponin with only mild elevation of creatinine. Patient likely has NSTEMI and will be admitted Due to concerns for patients condition deteriorating, the care required my highest level of attention and readiness to intervene. I assessed the patient, reviewed the medical records, ordered the appropriate tests and treatments, then reassessed for results and responsiveness. I communicated with medical personnel and consultants and formulated a plan of care. Total critical care time excludes any procedures X-Ray, Labs, Meds, VS Vital Signs Date Time Temp Pulse Resp B/P (MAP) Pulse Ox O2 Delivery O2 Flow Rate FiO2 04/13/25 13:39 66 04/13/25 12:42 73 04/13/25 12:42 98.5 72 15 147/70 97 98.5 Lab Test 04/13/25 14:15 04/13/25 12:58 Range/Units Troponin I High Sensitivity Pending 93 *H </=54 ng/L White Blood Count 6.1 4.4-10.8 10^3/uL Red Blood Count 4.50 4.5-5.90 10^6/uL Hemoglobin 12.4 L 13.5-17.5 g/dL Hematocrit 37.5 L 41.0-53.0 % Mean Corpuscular Volume 83.3 80.0-100.0 fL Mean Corpuscular Hemoglobin 27.6 L 28.0-32.0 pg Mean Corpuscular Hemoglobin Concent 33.1 32.0-36.0 g/dL Red Cell Distribution Width 16.3 H 11.8-14.3 % Platelet Count 166 140-450 10^3/uL Mean Platelet Volume 8.5 6.9-10.8 fL Neutrophils (%) (Auto) 73.2 37.0-80.0 % Lymphocytes (%) (Auto) 18.2 10.0-50.0 % Monocytes (%) (Auto) 6.9 0.0-12.0 % Eosinophils (%) (Auto) 1.2 0.0-7.0 % Basophils (%) (Auto) 0.5 0.0-2.0 % Neutrophils # (Auto) 4.5 1.6-8.6 10 ^3/uL Lymphocytes # (Auto) 1.1 0.4-5.4 10 ^3/uL Monocytes # (Auto) 0.4 0-1.3 10 ^3/uL Eosinophils # (Auto) 0.1 0-0.8 10 ^3/uL Basophils # (Auto) 0 0-0.2 10 ^3/uL Nucleated Red Blood Cells 0.1 % Sodium Level 138 136-145 mmol/L Potassium Level 3.7 3.5-5.1 mmol/L Chloride Level 101 98-107 mmol/L Carbon Dioxide Level 27 20-31 mmol/L Anion Gap 10 5-15 Blood Urea Nitrogen 25 H 9-23 mg/dL Creatinine 1.47 H 0.700-1.30 mg/dL Glomerular Filtration Rate Calc 51 >90 mL/min BUN/Creatinine Ratio 17.0 10.0-20.0 Serum Glucose 239 H 74-106 mg/dL Calcium Level 8.5 L 8.7-10.4 mg/dL Time of 1ST Reevaluation: 13:23 Reevaluation 1ST: Unchanged Patient Education/Counseling: Diagnosis, Treatment, Prognosis, Need For Follow Up Family Education/Counseling: Prognosis, Need For Follow Up, No Family Present SEPSIS Sepsis Screen Date sepsis recognized/suspect: Apr 13, 2025 Time Sepsis recognized/suspect: 1245 Recent Procedure: No On Antibiotic Therapy: No Respiratory Rate >20: No Heart Rate >90: No Temp<36 C (96.8 F) or >38.3 C: No SBP <90 or MAP <65 mmHG: No New Acute Mental Status Change: No Is the patient on CPAP, BIPAP,: No Physician Orders Electrocardigram (04/13/25 12:41) Troponin-I Hs (04/13/25 13:41) Troponin-I Hs (04/13/25 15:41) Electrocardigram (04/13/25 13:41) Electrocardigram (04/13/25 15:41) Chest Xray 1 View (04/13/25 12:55) Vital Signs Date Time Temp Pulse Resp B/P (MAP) Pulse Ox O2 Delivery O2 Flow Rate FiO2 04/13/25 13:39 66 04/13/25 12:42 73 04/13/25 12:42 98.5 72 15 147/70 97 98.5 Laboratory Tests Test 04/13/25 12:58 White Blood Count 6.1 10^3/uL (4.4-10.8) Departure 1 Departure Time of Disposition: 14:36 Impression: Primary Impression: NSTEMI (non-ST elevated myocardial infarction) Additional Impression: Renal insufficiency Disposition: ADMITTED INPATIENT Admit to: ICU Condition: Serious Discharged With: Self, Relative Critical Care Note Critical Care Time?: Yes (45 min-critical care time only) Critical care comment: Due to concerns for patients condition deteriorating, the care required my highest level of attention and readiness to intervene. I assessed the patient, reviewed the medical records, ordered the appropriate tests and treatments, then reassessed for results and responsiveness. I communicated with medical personnel and consultants and formulated a plan of care. Total critical care time excludes any procedures Stability Stability form required: No Heart Score Heart Score: Heart Score Response (Comments) Value History Highly Suspicious 2 EKG Repolarization Disturb 1 Age >65 2 Risk Factors >3 or Hx ASHD 2 Troponin >3 x's Normal limit 2 Total 9 I personally scribed for MARIA ESTHER JOHNSON MD ([email or web address]) on 04/13/25 at 13:02. Electronically submitted by Rich Valdes ([email or web address]). MARIA ESTHER JOHNSON MD Apr 13, 2025 13:02
[2025-04-13 13:18] LABS: Hematocrit 37.5 % (41.0-53.0); Hemoglobin 12.4 g/dL (13.5-17.5); Mean Corpuscular Hemoglobin 27.6 pg (28.0-32.0); Mean Corpuscular Volume 83.3 fL (80.0-100.0); Nucleated Red Blood Cells % 0.1 %
[2025-04-13 13:25] LABS: Chloride 101 mmol/L (98-107); Potassium 3.7 mmol/L (3.5-5.1); Sodium 138 mmol/L (136-145)
--- NOTE | 2025-04-13 13:25 | DVH ---
CHEST RADIOGRAPH Indication: cp Technique: Single frontal view of the chest was obtained COMPARISON: XY CHEST PORTABLE on DOS: 05/28/24, XY CHEST XRAY 1 VIEW on DOS: 05/27/24, XY CHEST TWO VIE WS ROUTINE on DOS: 05/24/24, CHEST PORTABLE on DOS: 09/26/21, CHEST WITHOUT CONTRAST on DOS: 04/03/21 FINDINGS: Lines and Tubes: None Lungs: Clear Pleura: No effusion. No pneumothorax. Cardiomediastinal contours: Unremarkable Bones: Unremarkable IMPRESSION: No acute disease.
[2025-04-13 13:26] LABS: Anion Gap 10 (5-15); Carbon Dioxide 27 mmol/L (20-31)
[2025-04-13 13:27] LABS: Calcium 8.5 mg/dL (8.7-10.4)
[2025-04-13 13:31] LABS: BUN/Creatinine Ratio 17.0 (10.0-20.0)
[2025-04-13 13:32] LABS: Blood Urea Nitrogen 25 mg/dL (9-23); Glucose 239 mg/dL (74-106)
[2025-04-13 15:06] VITALS: PULSE 66; RESP 20; O2SAT 95
[2025-04-13 15:22] LABS: INR 1.03 (0.9-1.15); Partial Thromboplastin Time 28.1 SEC (24.5-34.5); Prothrombin Time 10.9 sec (9.3-11.8)
--- NOTE | 2025-04-13 15:31 | DVHHP2 ---
Admitting Diagnosis: Chest pain History of Present Illness 70-year-old male with PMHx DM, HTN, Pleural Effusion Bilaterally presents with a chief complaint of chest pain x onset yesterday morning. Patient states that his pain is localized midsternally, nonradiating, describes as pressure. Patient reports that his pain feels similar to his pleural effusion pain. Patient was last admitted in May 2024 for pleural effusion and respiratory issues. 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/24 Furosemide (Lasix) 20 Mg Tb, 1 TAB PO DAILY, #90 TAB 1 Refill Prov:IVONNE MORE ELECTROLYSIST 05/28/24 Reported Medications Atorvastatin Calcium (Lipitor) 20 Mg Tab, 1 TAB PO BID, #90 TAB 1 Refill 05/26/24 Hydralazine Hcl (Hydralazine Hcl) 50 Mg Tab, 50 MG PO TID for 30 Days, MG 05/26/24 Irbesartan (IRBESARTAN) 300 Mg Tab, 1 TAB PO DAILY, #30 TAB 5 Refills 05/26/24 Metformin Hydrochloride (Metformin Hcl) 500 Mg Tab, 1000 MG PO IBID for 30 Days, MG 05/26/24 Empagliflozin (Jardiance) 10 Mg Tab, 10 MG PO DAILY, TAB 05/26/24 Carvedilol (Carvedilol) 25 Mg Tab, 25 MG PO Q12HR for 30 Days, MG 05/26/24 Glipizide (Glipizide) 10 Mg Tab, 10 MG PO AC for 30 Days, MG 05/26/24 Meclizine HCl (Meclizine Hydrochloride) 25 Mg Tab, 1 TAB PO TID PRN for dizziness 10/27/20 Amlodipine Besylate (Amlodipine Besylate) 10 Mg Tab, 10 MG PO DAILY 05/13/13 Hydrochlorothiazide (Hydrochlorothiazide) 25 Mg Tab, 25 MG PO DAILY 05/13/13 Metoprolol Tartrate (Metoprolol Tartrate) 50 Mg Tab, 50 MG PO DAILY 05/13/13 Irbesartan (Avapro) 300 Mg Tab, 300 MG PO DAILY 05/13/13 Omeprazole ([facility] Omeprazole) 20 Mg Tab, 20 MG PO DAILY 05/13/13 Current Medications Current Medications Medications (Trade) Dose Ordered Sig/Geovanny Route PRN Reason Start Time Stop Time Status Last Admin Heparin Sodium/ Dextrose 250 ml @ 10 mls/hr Q24H IV 04/13/25 15:30 04/13/25 16:55 DC 04/13/25 15:42 Atorvastatin Calcium (Lipitor) 40 mg HS PO 04/13/25 22:00 Carvedilol (Coreg Tablet) 25 mg Q12HR PO 04/13/25 22:00 Empaglifozin (Jardiance) 10 mg DAILY PO 04/14/25 10:00 Valsartan (Diovan) 80 mg DAILY PO 04/14/25 10:00 Aspirin 81 mg DAILY PO 04/14/25 10:00 Nitroglycerin (Ntrostat Sublingual) 0.4 mg Q5MINP PRN SL FOR CHEST PAIN 04/13/25 17:00 Morphine Sulfate 2 mg Q30M PRN IV FOR CHEST PAIN 04/13/25 17:00 Enoxaparin Sodium (Lovenox) 40 mg DAILY SC 04/14/25 10:00 Atorvastatin Calcium (Lipitor) 20 mg BID PO 04/13/25 22:00 04/13/25 19:22 DC Empaglifozin (Jardiance) 10 mg DAILY PO 04/14/25 10:00 04/13/25 19:22 DC Furosemide (Lasix Tablet) 20 mg DAILY PO 04/14/25 10:00 04/13/25 19:22 DC Hydrochlorothiazide (hydroCHLOROthiazide TABLET) 25 mg DAILY PO 04/14/25 10:00 04/13/25 19:22 DC Patient Own Medication 10 mg DAILY PO 04/14/25 10:00 04/13/25 19:22 DC Patient Own Medication 25 mg Q12HR PO 04/13/25 22:00 04/13/25 19:22 DC Patient Own Medication 50 mg TID PO 04/13/25 22:00 04/13/25 19:22 DC Patient Own Medication 1 tab DAILY PO 04/14/25 10:00 04/13/25 19:22 DC Patient Own Medication 20 mg DAILY PO 04/14/25 10:00 UNV Vital Signs Vital Signs Date Time Temp Pulse Resp B/P (MAP) Pulse Ox O2 Delivery O2 Flow Rate FiO2 04/13/25 20:30 98.0 63 16 143/66 (91) 96 98.0 04/13/25 19:30 Room Air* 0 21 SEPSIS Sepsis Screen Date sepsis recognized/suspect: Apr 13, 2025 Time Sepsis recognized/suspect: 1245 Recent Procedure: No On Antibiotic Therapy: No Respiratory Rate >20: No Heart Rate >90: No Temp<36 C (96.8 F) or >38.3 C: No SBP <90 or MAP <65 mmHG: No New Acute Mental Status Change: No Is the patient on CPAP, BIPAP,: No Physician Orders Electrocardigram (04/13/25 12:41) Electrocardigram (04/13/25 13:41) Chest Xray 1 View (04/13/25 12:55) * Cardiology Consult (04/13/25 15:31) Atorvastatin (Lipitor) (04/13/25 22:00) Carvedilol Tablet (Coreg Tablet) (04/13/25 22:00) Empagliflozin (Jardiance) (04/14/25 10:00) Valsartan (Diovan) (04/14/25 10:00) Aspirin Tablet (04/14/25 10:00) Nitroglycerin Sublingual (Ntrostat Subli (04/13/25 17:00) Morphine Sulfate Injection (04/13/25 17:00) Stat Ekg For Chest Pain (04/13/25 16:55) Notify Md Of Changes From Base (04/13/25 16:55) Television News Video Editor For 24 Hours (04/13/25 16:55) Emergency Dysrhythmia Protocol (04/13/25 16:55) Rhythm Strips Once Every Shift (04/13/25 16:55) Oxygen By Nasal Cannula (04/13/25 16:55) Cardiolite Multiple (04/13/25 16:55) Enoxaparin Sodium (Lovenox) (04/14/25 10:00) Complete Blood Count (04/14/25 05:00) Complete Blood Count (04/15/25 05:00) Complete Blood Count (04/16/25 05:00) Complete Blood Count (04/17/25 05:00) Complete Blood Count (04/18/25 05:00) Comprehensive Metabolic Panel (04/14/25 05:00) Comprehensive Metabolic Panel (04/15/25 05:00) Comprehensive Metabolic Panel (04/16/25 05:00) Comprehensive Metabolic Panel (04/17/25 05:00) Comprehensive Metabolic Panel (04/18/25 05:00) (Nf) Hydralazine Hcl (04/13/25 22:00) (Nf) Omeprazole (Cvs Omeprazole) (04/14/25 10:00) Admit (04/13/25:07) Code Status (04/13/25:) Vital Signs .PER UNIT PROTOCOL (04/13/25 21:07) Review Orders With Adm. (04/13/25 21:07) Encourage Activity As Tolerate (04/13/25 21:07) Sodium Chloride Lock (Saline Lock Ns) (04/13/25 22:00) Docusate Sodium Capsule (Colace Capsule) (04/13/25 21:15) Acetaminophen Tablet (Tylenol Tablet) (04/13/25 21:15) Advance Directive (04/13/25 21:07) Patient Condition (04/13/25 21:07) Allergies (04/13/25 21:07) Hydrocodone-Acet 5/325mg Tab ([place] 5/32 (04/13/25 21:15) Ondansetron Hcl (Zofran) (04/13/25 21:15) Nitroglycerin Sublingual (Ntrostat Subli (04/13/25 21:15) Morphine Sulfate Injection (04/13/25 21:15) Oxygen By Nasal Cannula (04/13/25 21:07) Npo (Nothing By Mouth) Diet (04/14/25 Breakfast) Glucose Blood (Accu-Chek Comfort Curve T (04/13/25 22:00) Bedtime Insulin Scale (04/13/25 22:00) Moderate Insulin Ss (04/14/25 07:00) Dextrose 50% Syringe (04/13/25 21:15) Vital Signs Date Time Temp Pulse Resp B/P (MAP) Pulse Ox O2 Delivery O2 Flow Rate FiO2 04/13/25 20:30 98.0 63 16 143/66 (91) 96 98.0 04/13/25 20:00 66 04/13/25 19:30 63 17 96 Room Air* 0 21 04/13/25 19:00 63 20 142/70 (94) 95 04/13/25 18:39 137/63 04/13/25 17:00 59 14 135/61 (85) 95 04/13/25 16:16 61 04/13/25 15:06 98.3 66 20 157/71 (99) 95 98.3 04/13/25 15:06 66 20 95 Room Air* 0 21 04/13/25 13:39 66 04/13/25 12:42 73 04/13/25 12:42 98.5 72 15 147/70 97 98.5 Laboratory Tests Test 04/13/25 12:58 White Blood Count 6.1 10^3/uL (4.4-10.8) Medications Medications Dose Ordered Sig/Geovanny Route Start Time Stop Time Status Last Admin Dose Admin Aspirin 325 mg ONCE ONCE PO 04/13/25 13:00 04/13/25 13:01 DC 04/13/25 15:41 Furosemide 20 mg ONCE ONCE IV 04/13/25 17:00 04/13/25 18:11 DC 04/13/25 18:39 Heparin Sodium (Porcine) 4,000 units ONCE ONCE IV 04/13/25 14:45 04/13/25 16:55 DC 04/13/25 15:39 Heparin Sodium/ Dextrose 250 ml @ 10 mls/hr Q24H IV 04/13/25 15:30 04/13/25 16:55 DC 04/13/25 15:42 Results Labs Test 04/13/25 16:14 04/13/25 12:58 Range/Units Troponin I High Sensitivity 87 *H </=54 ng/L White Blood Count 6.1 4.4-10.8 10^3/uL Red Blood Count 4.50 4.5-5.90 10^6/uL Hemoglobin 12.4 L 13.5-17.5 g/dL Hematocrit 37.5 L 41.0-53.0 % Mean Corpuscular Volume 83.3 80.0-100.0 fL Mean Corpuscular Hemoglobin 27.6 L 28.0-32.0 pg Mean Corpuscular Hemoglobin Concent 33.1 32.0-36.0 g/dL Red Cell Distribution Width 16.3 H 11.8-14.3 % Platelet Count 166 140-450 10^3/uL Mean Platelet Volume 8.5 6.9-10.8 fL Neutrophils (%) (Auto) 73.2 37.0-80.0 % Lymphocytes (%) (Auto) 18.2 10.0-50.0 % Monocytes (%) (Auto) 6.9 0.0-12.0 % Eosinophils (%) (Auto) 1.2 0.0-7.0 % Basophils (%) (Auto) 0.5 0.0-2.0 % Neutrophils # (Auto) 4.5 1.6-8.6 10 ^3/uL Lymphocytes # (Auto) 1.1 0.4-5.4 10 ^3/uL Monocytes # (Auto) 0.4 0-1.3 10 ^3/uL Eosinophils # (Auto) 0.1 0-0.8 10 ^3/uL Basophils # (Auto) 0 0-0.2 10 ^3/uL Nucleated Red Blood Cells 0.1 % Prothrombin Time 10.9 9.3-11.8 sec Prothrombin Time INR 1.03 0.9-1.15 Activated Partial Thromboplast Time 28.1 24.5-34.5 SEC Sodium Level 138 136-145 mmol/L Potassium Level 3.7 3.5-5.1 mmol/L Chloride Level 101 98-107 mmol/L Carbon Dioxide Level 27 20-31 mmol/L Anion Gap 10 5-15 Blood Urea Nitrogen 25 H 9-23 mg/dL Creatinine 1.47 H 0.700-1.30 mg/dL Glomerular Filtration Rate Calc 51 >90 mL/min BUN/Creatinine Ratio 17.0 10.0-20.0 Serum Glucose 239 H 74-106 mg/dL Hemoglobin A1c 8.4 H <5.7 % A1C Calcium Level 8.5 L 8.7-10.4 mg/dL Magnesium Level 2.1 1.6-2.6 mg/dL B-Type Natriuretic Peptide 277.03 0-100 pg/mL Triglycerides Level 151 H < 150 mg/dL Cholesterol Level 121 < 200 mg/dL LDL Cholesterol 68 < 100 mg/dL HDL Cholesterol 36 L 40-59 mg/dL Thyroid Stimulating Hormone (TSH) 1.73 0.55-4.78 uIU/mL Primary Diagnosis Chest pain rule out ACS Morbidly obese Diabetes Plan Patient started on heparin drip. Continue heparin drip Cardiology consulted NPO after midnight for nuclear stress test tomorrow Resume home meds Insulin sliding scale Full code Cardiac diet PPI for GI prophylaxis Heparin drip for DVT prophylaxis Plan discussed with: Patient, Daughter Problems List: (1) Elevated troponin (2) Acute chest pain Status: Acute Date of Service: Apr 13, 2025 Billing Provider: BALAJI HARRINGTON MD Common Visit Codes: [id number] INP/OBS CARE (HIGH) BALAJI HARRINGTON MD Apr 13, 2025 15:31
[2025-04-13] MEDS: HEPARIN SODIUM (PORCINE) 5000 UNITS/ML 1ML VIAL IV ONE (15:39)
[2025-04-13] MEDS: HEPARIN DRIP/D5W 100UNITS/ML 250 ML IV SCH (15:42)
[2025-04-13] MEDS ORDERED: MORPHINE SULFATE INJ 2 MG/ml SYRG IV PRN ×2 (17:00→21:15)
[2025-04-13] MEDS ORDERED: NITROGLYCERIN 0.4 MG SL TAB SL PRN ×2 (17:00→21:15)
--- NOTE | 2025-04-13 17:08 | DVHINCON2 ---
Date Seen: Apr 13, 2025 Referring Physician MD Rush Reason for Consultation NSTEMI History of Present Illness This is a pleasant Yemeni-speaking mostly male who presented to the emergency room with a chief complaint of chest pain since last night. The patient reports he was resting at the onset of symptoms describing his chest pain to the lower substernal area towards the epigastrium, nonradiating, non provoked, and associated with mild SOB. He underwent multiple 12 lead electrocardiogram revealing a sinus rhythm with an associated RBBB and no evidence of acute ischemia. Serial troponin levels peaked at 93 ng/L. Follows up in the outpatient setting with Dr. Montague given history of CHF. Reports undergoing a treadmill stress test years ago. Denies any history of invasive cardiac workup. Significant medical history includes unspecified CHF, hypertension, dyslipidemia, ywx-[id number]-rvvzftkwe diabetes mellitus, history of renal cancer status post right nephrectomy, and morbid obesity. Past Medical History Past medical history reviewed. No other significant than mentioned above. Past Surgical History Right nephrectomy at [facility], 2017 Family History: Hypertension mother Family History Family history reviewed. Social History Denies the use of illicit drugs, alcohol, or tobacco use. Allergies: Coded Allergies: NO KNOWN ALLERGIES (Unverified , 01/15/20) Home Meds Active Scripts Potassium Chloride (Klor-Con 8) 8 Meq Tab, 8 MEQ PO DAILY for 60 Days, #60 TAB Prov:IVONNE MORE LOOM OVERHAULER 05/28/24 Furosemide (Lasix) 20 Mg Tb, 1 TAB PO DAILY, #90 TAB 1 Refill Prov:IVONNE MORE LOOM OVERHAULER 05/28/24 Reported Medications Atorvastatin Calcium (Lipitor) 20 Mg Tab, 1 TAB PO BID, #90 TAB 1 Refill 05/26/24 Hydralazine Hcl (Hydralazine Hcl) 50 Mg Tab, 50 MG PO TID for 30 Days, MG 05/26/24 Irbesartan (IRBESARTAN) 300 Mg Tab, 1 TAB PO DAILY, #30 TAB 5 Refills 05/26/24 Metformin Hydrochloride (Metformin Hcl) 500 Mg Tab, 1000 MG PO IBID for 30 Days, MG 05/26/24 Empagliflozin (Jardiance) 10 Mg Tab, 10 MG PO DAILY, TAB 05/26/24 Carvedilol (Carvedilol) 25 Mg Tab, 25 MG PO Q12HR for 30 Days, MG 05/26/24 Glipizide (Glipizide) 10 Mg Tab, 10 MG PO AC for 30 Days, MG 05/26/24 Meclizine HCl (Meclizine Hydrochloride) 25 Mg Tab, 1 TAB PO TID PRN for dizziness 10/27/20 Amlodipine Besylate (Amlodipine Besylate) 10 Mg Tab, 10 MG PO DAILY 05/13/13 Hydrochlorothiazide (Hydrochlorothiazide) 25 Mg Tab, 25 MG PO DAILY 05/13/13 Metoprolol Tartrate (Metoprolol Tartrate) 50 Mg Tab, 50 MG PO DAILY 05/13/13 Irbesartan (Avapro) 300 Mg Tab, 300 MG PO DAILY 05/13/13 Omeprazole (Cvs Omeprazole) 20 Mg Tab, 20 MG PO DAILY 05/13/13 Home Meds Home medications reviewed. Current Medications Current Medications Medications (Trade) Dose Ordered Sig/Geovanny Route PRN Reason Start Time Stop Time Status Last Admin Heparin Sodium/ Dextrose 250 ml @ 10 mls/hr Q24H IV 04/13/25 15:30 04/13/25 15:42 Review of Systems Constitutional: No symptom reported Ears, Nose, & Throat: No symptom reported Eyes: No symptom reported Neurological: No symptoms reported Pulmonary/Respiratory: SOB Cardiovascular: Chest pain Gastrointestinal: No symptom reported Genitourinary: No symptom reported Musculoskeletal: No symptom reported Skin: No symptom reported Psychiatric: No symptom reported Endocrine: No symptom reported Hemotologic/Lymphatic: No symptom reported Vital Signs Vital Signs Date Time Temp Pulse Resp B/P (MAP) Pulse Ox O2 Delivery O2 Flow Rate FiO2 04/13/25 15:06 98.3 66 20 157/71 (99) 95 98.3 04/13/25 15:06 Room Air* 0 21 Physical Exam General Appearance: Cooperative. Well developed. Morbidly obese. In no acute distress Head Exam: Normal inspection Neck Exam: Normal inspection. Non-tender. Normal alignment Pulmonary/Respiratory: Chest non-tender. Clear bilateral breath sounds Cardiovascular/Chest: Regular rate and rhythm. S1, S2. Sinus rhythm with RBBB. No murmurs. No JVD. Peripheral Pulses: 2+ Radial (R). 2+ Radial (L). 2+ Pedal (R). 2+ Pedal (L) Abdominal Exam: Normal bowel sounds. Soft. Nontender. No hepatospenomegaly. No masses Ankle Exam: Negative ankle edema Lower extremities: Negative lower extremity edema Neuro/Mental Status: A&O x4. Coherent Thoughts/Psych: Normal thought pattern. Appropriate mood and affect. Good judgement and insight Appearance: In no acute distress Skin Exam: Normal inspection. Normal color. Warm. Dry Labs/Diagnostic Data Labs Test 04/13/25 16:14 04/13/25 12:58 Range/Units Troponin I High Sensitivity 87 *H </=54 ng/L White Blood Count 6.1 4.4-10.8 10^3/uL Red Blood Count 4.50 4.5-5.90 10^6/uL Hemoglobin 12.4 L 13.5-17.5 g/dL Hematocrit 37.5 L 41.0-53.0 % Mean Corpuscular Volume 83.3 80.0-100.0 fL Mean Corpuscular Hemoglobin 27.6 L 28.0-32.0 pg Mean Corpuscular Hemoglobin Concent 33.1 32.0-36.0 g/dL Red Cell Distribution Width 16.3 H 11.8-14.3 % Platelet Count 166 140-450 10^3/uL Mean Platelet Volume 8.5 6.9-10.8 fL Neutrophils (%) (Auto) 73.2 37.0-80.0 % Lymphocytes (%) (Auto) 18.2 10.0-50.0 % Monocytes (%) (Auto) 6.9 0.0-12.0 % Eosinophils (%) (Auto) 1.2 0.0-7.0 % Basophils (%) (Auto) 0.5 0.0-2.0 % Neutrophils # (Auto) 4.5 1.6-8.6 10 ^3/uL Lymphocytes # (Auto) 1.1 0.4-5.4 10 ^3/uL Monocytes # (Auto) 0.4 0-1.3 10 ^3/uL Eosinophils # (Auto) 0.1 0-0.8 10 ^3/uL Basophils # (Auto) 0 0-0.2 10 ^3/uL Nucleated Red Blood Cells 0.1 % Prothrombin Time 10.9 9.3-11.8 sec Prothrombin Time INR 1.03 0.9-1.15 Activated Partial Thromboplast Time 28.1 24.5-34.5 SEC Sodium Level 138 136-145 mmol/L Potassium Level 3.7 3.5-5.1 mmol/L Chloride Level 101 98-107 mmol/L Carbon Dioxide Level 27 20-31 mmol/L Anion Gap 10 5-15 Blood Urea Nitrogen 25 H 9-23 mg/dL Creatinine 1.47 H 0.700-1.30 mg/dL Glomerular Filtration Rate Calc 51 >90 mL/min BUN/Creatinine Ratio 17.0 10.0-20.0 Serum Glucose 239 H 74-106 mg/dL Calcium Level 8.5 L 8.7-10.4 mg/dL Assessment Chest pain rule out coronary artery disease Rule out structural heart disease Hypertension Dyslipidemia Fyn-abncwgc-clqwhuaua diabetes mellitus Morbid obesity Plan/Recommendation (Dr. Eller) We will continue further cardiac evaluation with a transthoracic echocardiogram to evaluate cardiac function and a Cardiolite stress test to rule out coronary ischemia. Continue single antiplatelet therapy and lipid lowering agent. Initiate blood pressure control, resume home medications. Initiate DVT/VTE prophylaxis. Monitor ECG changes closely and notify. Chest pain protocol. Thank you for allowing us to participate in this patient's care. Please call if you have any questions or concerns. This medical document was created using an electronic medical record system with voice recognition software and computerized dictation system. Although this document has been carefully reviewed, there might still be some phonetic and typographical errors. Occasional wrong-word or ``sound-alike substitutions may have occurred due to the inherent limitations of voice recognition software. These areas are purely typographical due to imperfections of the software programs and do not reflect any compromise in the patient's medical care. Please read the chart carefully and recognize, using context, where these substitutions have occurred. Plan discussed with: Patient, Other NYHA Physical activity limitations: NA Date of Service: Apr 13, 2025 Billing Provider: AURY JUNG Cardiology Common Codes: [id number] INP/OBS CARE (High) AURY JUNG Apr 13, 2025 17:08
[2025-04-13 18:13] LABS: Magnesium 2.1 mg/dL (1.6-2.6)
[2025-04-13 18:15] LABS: Cholesterol 121.0 mg/dL (< 200); HDL Cholesterol 36.0 mg/dL (40-59); Triglycerides 151.0 mg/dL (< 150)
[2025-04-13] MEDS: FUROSEMIDE 20 MG/2 ML VIAL IV ONE (18:39)
[2025-04-13 19:30] VITALS: PULSE 63; RESP 17; O2SAT 96
[2025-04-13 20:00] VITALS: PULSE 63
[2025-04-13] MEDS ORDERED: ACETAMINOPHEN 325 MG TAB PO PRN (21:15)
[2025-04-13] MEDS ORDERED: DEXTROSE (50%) 50ML SYRG IV PRN (21:15)
[2025-04-13] MEDS ORDERED: ONDANSETRON HCL 4 MG/2 ML VIAL IV PRN (21:15)
[2025-04-13] MEDS ORDERED: DOCUSATE SOD 100 MG CAP PO PRN (21:15)
[2025-04-13] MEDS: InsuLIN REG 1unit/0.01ml Soln (100units/ml) SC SCH (22:00)
[2025-04-13] MEDS: ACCU-CHEK COMFORT CURVE STRIP VI SCH (22:00)
[2025-04-13] MEDS ORDERED: ATORVASTATIN 20 MG TAB PO SCH (22:00)
[2025-04-13] MEDS ORDERED: PATIENTS OWN MEDICATION (Hydralazine Hcl 50 MG) PO SCH (22:00)
[2025-04-13] MEDS ORDERED: PATIENTS OWN MEDICATION (Carvedilol 25 MG) PO SCH (22:00)
[2025-04-13 22:14] VITALS: BP 148/76; PULSE 64; RESP 20; TEMP 97.6; O2SAT 96
[2025-04-13 22:21] VITALS: BP 148/76; PULSE 64; RESP 20; TEMP 97.6; O2SAT 96
[2025-04-14] VITALS (8 sets, daily range): BP systolic 135–154; BP diastolic 62–79; PULSE 62–97; RESP 16–20; TEMP 97.5–98.2; O2SAT 93–98
[2025-04-14] MEDS ORDERED: INDA2.5T PO (03:24)
[2025-04-14] MEDS: SODIUM CHLOR 0.9% PF (SALINE LOCK) 10ML VIAL/SYR IV SCH (05:19)
[2025-04-14] MEDS: CARVEDILOL 12.5 MG TAB PO SCH (05:19)
[2025-04-14] MEDS: ATORVASTATIN 20 MG TAB PO SCH (05:20)
[2025-04-14] MEDS: PANTOPRAZOLE 40 MG TAB PO SCH (06:13)
[2025-04-14] MEDS: InsuLIN REG 1unit/0.01ml Soln (100units/ml) SC SCH (06:39)
[2025-04-14 08:19] LABS: Albumin 3.7 g/dL (3.2-4.8); Alkaline Phosphatase 57 U/L (46-116); Anion Gap 12 (5-15); BUN/Creatinine Ratio 17.2 (10.0-20.0); Blood Urea Nitrogen 20 mg/dL (9-23); Calcium 8.7 mg/dL (8.7-10.4); Carbon Dioxide 25 mmol/L (20-31); Chloride 105 mmol/L (98-107); Glucose 88 mg/dL (74-106); Sodium 142 mmol/L (136-145); Total Protein 5.9 g/dL (5.7-8.2)
[2025-04-14 08:20] LABS: Bilirubin, Total 0.5 mg/dL (0.2-1.0)
[2025-04-14 08:25] LABS: Alanine Aminotransferase 48 U/L (7-40); Potassium 3.2 mmol/L (3.5-5.1)
[2025-04-14 08:26] LABS: Hematocrit 33.3 % (41.0-53.0); Hemoglobin 11.1 g/dL (13.5-17.5); Mean Corpuscular Hemoglobin 27.6 pg (28.0-32.0); Mean Corpuscular Volume 82.7 fL (80.0-100.0); Nucleated Red Blood Cells % 0.1 %
[2025-04-14] MEDS: REGADENOSON 0.4 MG/5 ML SYRG IV ONE ×2 (08:38→09:15)
[2025-04-14] MEDS ORDERED: IRBESARTAN PO SCH (10:00)
[2025-04-14] MEDS ORDERED: hydroCHLOROthiazide 25 MG TAB PO SCH (10:00)
[2025-04-14] MEDS ORDERED: FUROSEMIDE 20 MG TAB PO SCH (10:00)
[2025-04-14] MEDS ORDERED: PATIENTS OWN MEDICATION (Amlodipine Besylate 10 MG) PO SCH (10:00)
[2025-04-14] MEDS ORDERED: EMPAGLIFLOZIN 10 MG TAB PO SCH (10:00)
[2025-04-14] MEDS: EMPAGLIFLOZIN 10 MG TAB PO SCH (11:12)
[2025-04-14] MEDS: ENOXAPARIN SOD 40 MG/0.4 ML SYRINGE SC SCH (11:13)
[2025-04-14] MEDS: VALSARTAN 80 MG TAB PO SCH (12:25)
--- NOTE | 2025-04-14 13:10 | ECG ---
[facility] Test Date: 2025-04-13 Test Time: 13:36:21 Pat Name: NIGHAT VILLATORO Department: ED Room: 0293T A Gender: M Carpenter Rough: JORGE : 1955 Requested By: MARIA ESTHER JOHNSON Order Number: [id number] Reading MD: Arthur Eller Measurements Intervals [place] Rate: 66 P: -9 MA: 191 QRS: 72 QRSD: 139 T: 7 QT: 492 QTc: 516 Interpretive Statements Sinus rhythm Right bundle branch block Electronically Signed On 04-19-2025 14:19:04 PDT by Arthur Eller Please click the below link to view image of tracing.
--- NOTE | 2025-04-14 15:48 | DVHSR ---
APPROVED REPORT Exam: Nuclear Stress Test BMI: 0 Stress Test Details HR Max Heart Rate (APMHR): 149.490192 bpm Target HR (85% APMHR): 126.063779 bpm BP ECG Stress ECG Conclusion lve 49% no major ischemia noted RBBB on ecg arrhythmia noted TID noted on stress iaging, this can be concernign for multivessel CAD in some patients clinical correlate NM EXAM: Myocardial Perfusion REST/STRESS Imaging Protocol: Rest Tc-99m/Stress Tc-99m 1 day Resting Data Rest SPECT myocardial perfusion imaging was performed in supine position 60 minutes following the int ravenous injection of 10.9 mCi of Tc-99m Sestamibi. Time of rest injection: 07:45 Date: 04/14/2025 Time of rest imagin:45 Date: 04/14/2025 Administration Route: IV Administration Site: Left Hand Pharmacologic Stress Pharmacologic stress test was performed by injecting Regadenoson 0.4 mg IV push followed by the intra venous injection of 30.4 mCi of Tc-99m Sestamibi. Time of stress injection: 09:15 Date: 04/14/2025 Time of stress imagin:15 Date: 04/14/2025 Administration Route: IV Administration Site: Left Hand The images were gated to evaluate regional wall motion and calculate left ventricular ejection fracti on. Stress only was performed in the Supine position. Nuclear Conclusion Nuclear Findings: positive for ischemia lve 49% no major ischemia noted RBBB on ecg arrhythmia noted TID noted on stress iaging, this can be concernign for multivessel CAD in some patients clinical correlate
--- NOTE | 2025-04-14 17:08 | DVHPNRES ---
Progress Note Date Seen: Apr 14, 2025 Resident Creating Document: ERVIN BECERRA RESIDENT Medical Necessity Reason Pt with a Central, PICC or Fol: No Subjective Review of Systems This is a 70-year-old male past medical history of diabetes, hypertension, pleural effusion who came to the ER with the chief complaint of chest pain since 2 days. The patient states that the pain was in the lower substernal area going to the epigastrium but not radiating to the jaw or arm. He had the pain continuously for 2 days and described it as a pressure-like sensation. It had no aggravating or relieving factors. It was not associated with any symptoms like fever or chills. He also complained of mild shortness of breath. EKG showed sinus rhythm with right bundle-branch block with troponins in the 80s. Cardiolite stress test was positive for ischemia. He is pending echo. Past medical history: renal cell carcinoma post right nephrectomy, diabetes mellitus, hypertension, dyslipidemia Past surgical history: right Nephrectomy, hernia repair Past Hospitalization: may 2024 for pleural effusion and respiratory issues Social & Personal history: Lives at home with family Smoking: Quit smoking 1 year back Alcohol: occasionally drugs:denies Allergies: No known allergies Patient seen and examined at bedside. Patient is alert and oriented to time, place person and responding to all questions. Eyes: No Pain, No Vision change, No Conjunctivae inflammation, No Eyelid inflammation, No Other, No Redness ENT: No Ear pain, No Ear discharge, No Nose pain, No Nose discharge, No Nose congestion, No Mouth pain, No Mouth swelling, No Throat pain, No Throat swelling, No Other Cardiovascular: Chest Pain, No Palpitations, No Orthopnea, No Paroxysmal No Dyspnea, No Edema, No Lt Headedness, No Other Respiratory: No Cough, No Dry, Shortness of breath, No SOB with exertion, No Wheezing, No Hemoptysis, No Pleuritic Pain, No Sputum, No Other Gastrointestinal: No Nausea, No Vomiting, No Abdominal Pain, No Diarrhea, No Constipation, No Melena, No Hematochezia, No Other Genitourinary: No Dysuria, No Frequency, No Incontinence, No Hematuria, No Retention, No Other Objective vital signs Vital Sign Date Time Temp Pulse Resp B/P (MAP) Pulse Ox O2 Delivery O2 Flow Rate FiO2 04/14/25 13:00 98.0 97 16 135/62 (86) 97 98.0 04/14/25 08:00 Room Air* 0 21 Total Intake and Output 04/13/25 04/13/25 04/14/25 15:00 23:00 07:00 Intake Total 0 ml Balance 0 ml medications Current Medications Medications Dose Ordered Sig/Geovanny Route Start Time Stop Time Status Last Admin Dose Admin Atorvastatin Calcium 40 mg HS PO 04/13/25 22:00 04/14/25 05:20 40 MG Carvedilol 25 mg Q12HR PO 04/13/25 22:00 04/14/25 11:11 25 MG Empaglifozin 10 mg DAILY PO 04/14/25 10:00 04/14/25 11:12 10 MG Valsartan 80 mg DAILY PO 04/14/25 10:00 04/14/25 12:25 80 MG Aspirin 81 mg DAILY PO 04/14/25 10:00 04/14/25 11:12 81 MG Enoxaparin Sodium 40 mg DAILY SC 04/14/25 10:00 04/14/25 11:13 40 MG Pantoprazole Sodium 40 mg DAILY@0700 PO 04/14/25 07:00 04/14/25 06:13 40 MG Sodium Chloride 10 ml Q8HR IV 04/13/25 22:00 04/14/25 13:37 10 ML Docusate Sodium 100 mg BIDPRN PRN PO 04/13/25 21:15 Acetaminophen 650 mg Q6HP PRN PO 04/13/25 21:15 Acetaminophen/ Hydrocodone Bitart 1 tab Q4HP PRN PO 04/13/25 21:15 Ondansetron HCl 4 mg Q4HP PRN IV 04/13/25 21:15 Nitroglycerin 0.4 mg Q5MINP PRN SL 04/13/25 21:15 Morphine Sulfate 2 mg Q30M PRN IV 04/13/25 21:15 Diagnostic Test (Pha) 1 strip ACHS 04/13/25 22:00 04/14/25 12:26 1 STRIP Insulin Human Regular HS SC 04/13/25 22:00 Insulin Human Regular AC SC 04/14/25 07:00 04/14/25 12:30 2 UNITS Dextrose 50 ml UD PRN IV 04/13/25 21:15 Examination General Appearance: Cooperative. Well developed. Well nourished. NAD Head Exam: Normal inspection Neck Exam: Normal inspection. Non-tender. Normal alignment Pulmonary/Respiratory: Chest non-tender. Clear bilateral breath sounds, no crackles, no wheezing. Cardiovascular/Chest: Regular rate and rhythm. No murmurs. No JVD. Peripheral Pulses: 2+ Radial (R). 2+ Radial (L). 2+ Pedal (R). 2+ Pedal (L) Abdominal Exam: Normal bowel sounds. Soft. normal abdomen, no visible veins, Nontender. No hepatospenomegaly. No masses Ankle Exam: Negative ankle edema Lower extremities: Negative lower extremity edema Neuro/Mental Status: A&O x4. Coherent. Thoughts/Psych: Normal thought pattern. Appropriate mood and affect. Good judgement and insight Skin Exam: Normal inspection. Normal color. Warm. Dry laboratory and microbiology Laboratory Tests 04/14/25 06:57 Test 04/14/25 06:57 Range/Units Serum Glucose 88 # 74-106 mg/dL Labs and/or images reviewed: Labs reviewed by me, Image(s) reviewed by me Problem List/Assessment/Plan Problem List/Assessment/Plan chest pain probably acute coronary syndrome -chest pain with positive cardiolite test for ischemia -scheduled for left heart cath tomorrow NSTEMI likely type I on apririn diabetes moderate insulin sliding scale PUD prophylaxis: protonix DVT prophylaxis:not done Goals of care: Full code, discussed for >16 minutes on 04/14/2025 Plan discussed with patient Plan discussed with Dr Yanes Plan discussed with: Patient My Orders My Orders Orders - ERVIN BECERRA Procedure Category Date Status Time Mrsa Screen NAVEEN 04/14/25 In Process 06:16 Date of Service: Apr 14, 2025 Billing Provider: AGA YANES MD Common Visit Codes: [id number] INP/OBS CARE(HIGH) Secondary Visit Codes: [id number] CARE PLAN 30 MINUTES ERVIN BECERRA Apr 14, 2025 17:08 AGA YANES MD Apr 17, 2025 20:27
[2025-04-14] MEDS: POTASSIUM EFFERVESENT TAB 25 MEQ PO ONE (19:30)
[2025-04-15] VITALS (13 sets, daily range): BP systolic 108–158; BP diastolic 41–88; PULSE 54–106; RESP 14–20; TEMP 97.9–98.1; O2SAT 94–98
[2025-04-15] MEDS: HYDROcodone-ACET 5/325MG TAB PO PRN (00:09)
[2025-04-15 08:27] LABS: Hematocrit 35.3 % (41.0-53.0); Hemoglobin 11.7 g/dL (13.5-17.5); Mean Corpuscular Hemoglobin 27.5 pg (28.0-32.0); Mean Corpuscular Volume 83.1 fL (80.0-100.0); Nucleated Red Blood Cells % 0.3 %
[2025-04-15 08:42] LABS: Alkaline Phosphatase 61 U/L (46-116); Anion Gap 9 (5-15); BUN/Creatinine Ratio 14.4 (10.0-20.0); Blood Urea Nitrogen 17 mg/dL (9-23); Calcium 8.8 mg/dL (8.7-10.4); Carbon Dioxide 24 mmol/L (20-31); Potassium 3.9 mmol/L (3.5-5.1); Sodium 141 mmol/L (136-145); Total Protein 6.2 g/dL (5.7-8.2)
[2025-04-15 08:43] LABS: Albumin 3.8 g/dL (3.2-4.8); Bilirubin, Total 0.6 mg/dL (0.2-1.0)
[2025-04-15 08:45] LABS: Alanine Aminotransferase 56 U/L (7-40); Chloride 108 mmol/L (98-107); Glucose 113 mg/dL (74-106)
[2025-04-15] MEDS ORDERED: IODIXANOL 320MG/ML 100ML BTL IV ONE ×2 (12:31→12:47)
[2025-04-15] MEDS ORDERED: HEPARIN SODIUM (PORCINE) 5000 UNITS/ML 1ML VIAL ONE (12:37)
[2025-04-15] MEDS ORDERED: VERAPAMIL 2.5MG/ML INJ 2ML VIAL IV ONE (12:37)
[2025-04-15] MEDS ORDERED: fentaNYL CITRATE 100 MCG/2 ML VL ONE (12:37)
[2025-04-15] MEDS ORDERED: ANGIOMAX 250 MG VIAL IV ONE (12:37)
[2025-04-15] MEDS ORDERED: LIDOCAINE 2%HCL (LOCAL ANESTH.) INJ 20ML MDV ONE (12:38)
[2025-04-15] MEDS ORDERED: MIDAZOLAM HCL 2MG/2ML 2ml VIAL (1mg/ml) ONE (12:38)
[2025-04-15] MEDS ORDERED: SODIUM CHL 0.9% 0 ML ONE (12:38)
--- NOTE | 2025-04-15 13:00 | DVHPN2 ---
Progress Note Date Seen: Apr 15, 2025 Medical Necessity Reason Pt with a Central, PICC or Fol: No Subjective Patient reports: Feels better Objective vital signs Vital Sign Date Time Temp Pulse Resp B/P (MAP) Pulse Ox O2 Delivery O2 Flow Rate FiO2 04/15/25 09:30 157/71 04/15/25 09:29 60 04/15/25 08:56 98.0 17 96 98.0 04/15/25 07:30 Room Air* 0 21 Total Intake and Output 04/14/25 04/14/25 04/15/25 14:59 22:59 06:59 Intake Total 500 ml 700 ml Balance 500 ml 700 ml medications Current Medications Medications Dose Ordered Sig/Geovanny Route Start Time Stop Time Status Last Admin Dose Admin Atorvastatin Calcium 40 mg HS PO 04/13/25 22:00 04/14/25 22:51 40 MG Carvedilol 25 mg Q12HR PO 04/13/25 22:00 04/15/25 09:29 25 MG Empaglifozin 10 mg DAILY PO 04/14/25 10:00 04/15/25 09:30 10 MG Valsartan 80 mg DAILY PO 04/14/25 10:00 04/15/25 09:30 80 MG Aspirin 81 mg DAILY PO 04/14/25 10:00 04/15/25 09:30 81 MG Pantoprazole Sodium 40 mg DAILY@0700 PO 04/14/25 07:00 04/14/25 06:13 40 MG Sodium Chloride 10 ml Q8HR IV 04/13/25 22:00 04/15/25 06:37 10 ML Docusate Sodium 100 mg BIDPRN PRN PO 04/13/25 21:15 Acetaminophen 650 mg Q6HP PRN PO 04/13/25 21:15 Acetaminophen/ Hydrocodone Bitart 1 tab Q4HP PRN PO 04/13/25 21:15 04/15/25 00:09 1 TAB Ondansetron HCl 4 mg Q4HP PRN IV 04/13/25 21:15 Nitroglycerin 0.4 mg Q5MINP PRN SL 04/13/25 21:15 Morphine Sulfate 2 mg Q30M PRN IV 04/13/25 21:15 Diagnostic Test (Pha) 1 strip ACHS 04/13/25 22:00 04/15/25 06:37 1 STRIP Insulin Human Regular HS SC 04/13/25 22:00 04/14/25 23:07 2 UNITS Insulin Human Regular AC SC 04/14/25 07:00 04/14/25 18:13 3 UNITS Dextrose 50 ml UD PRN IV 04/13/25 21:15 Examination: GENERAL:Abnormal, HEENT:Abnormal, LUNGS:Abnormal, CVS:Abnormal, ABDOMEN:Abnormal laboratory and microbiology Laboratory Tests 04/15/25 07:48 Test 04/15/25 07:48 Range/Units Serum Glucose 113 H 74-106 mg/dL Problem List/Assessment/Plan Problem List/Assessment/Plan cad ---mild non critical on cath obesity HTN HL ckd s/p nephrectomy cath shows mild cad, asa, statin dc home when medically stable Plan discussed with: Patient My Orders My Orders Orders - SOLA NICOLE MD Procedure Category Date Status Time Cl Left Heart Cath CL 04/15/25 Taken 10:14 Date of Service: Apr 15, 2025 Billing Provider: SOLA NICOLE MD Common Visit Codes: NOT BILLABLE SOLA NICOLE MD Apr 15, 2025 13:00
--- NOTE | 2025-04-15 13:01 | DVHOP2 ---
Operative Report Operative Report CARDIAC MARINE FUEL DOCK ATTENDANT PROCEDURE REPORT [place], [place] Date of Service: 04/15/25 Reservoir Engineer: Sola Nicole MD PROCEDURES PERFORMED: Coronary angiogram, left heart catheterization, conscious sedation administration and supervision, less than 15 minutes; fluoroscopy use and interpretation. PREOPERATIVE DIAGNOSES: Abnormal stress test with CCS class 3 angina, POSTOP DIAGNOSIS: mild cad DESCRIPTION OF PROCEDURE: The patient or appropriate family signed informed consent understanding the risks, benefits and alternatives of the procedure, they wished to proceed. The patient was brought to the cardiac starch factory laborer in n.p.o. state. The patient was prepped in a sterile fashion. Sedation was used per cardiac cath protocol. I administered 2 mL of 2% lidocaine to the right wrist. With an antegrade front wall puncture. I cannulated the right radial artery and placed a 6-D[place] Glidesheath slender. Next, an intra-arterial spasmolytic was administered. Next, a - 6French [place] catheter a and were used for coronary angiogram and LVEDP measurement and pressure pullback. At the completion of procedure, all guides and wires were removed, and there were no immediate complications. 5000 U of IV heparin given. FINDINGS: RCA: Moderate vessel off the right sinus of Valsalva, there is no severe flow limiting stenosis. dominant vessel. diffuse distal small vessel disease LEFT MAIN: Moderate size left main, it bifurcates into LAD and circumflex. CIRCUMFLEX: Moderate caliber vessel coming off the left main with no flow limiting stenosis. mild diffuse distal small vessel disease LAD: LAD is a moderate caliber vessel coming of the left main. mild diag1 and diag 2 plaque noted. diffuse luminal irregularities LVEDP of 6 mmhg CONCLUSIONS: 1. mild cad PLAN: Aggressive risk factor modification and medical management for the patient. SOLA NICOLE MD Apr 15, 2025 13:01
--- NOTE | 2025-04-15 13:17 | DVHSR ---
APPROVED REPORT EXAM: Two-dimensional and M-mode echocardiogram with Doppler and color Doppler. Blood Pressure: 122/65 mmHg INDICATION evaluate cardiac function RISK FACTORS Obesity: Height: 5'11, Weight: 265 DIMENSIONS LVDd5.8 (3.8-5.7cm)LA (2D)5.1 (1.9-4.0cm)Aortic Root3.6 (2.0-3.7cm) LVDs4.5 (2.5-4.0cm)LA (MM) (1.9-4.0cm)Aortic Cusp Exc2.0 (1.5-2.0cm) EF (%) 50.0 (55-70%)Rt. Atrium4.3 (1.9-4.0cm)Asc. Aorta cm IVSd1.1 (0.7-1.1cm)RV (D)4.4 (1.8-2.4cm) PWd1.1 (0.7-1.1cm) Mitral Valve MitralMitral Stenosis E wave1.18m/sMV Mean GR.2mmHg A wave0.62m/sMV Peak GR.99mmHg E/A ratio1.92D MVAcm2 DECEL [id number] 1/2 Timems Aortic Valve Aortic ValveAortic Stenosis V10.99m/Cailin Mean GR.3mmHg V21.06m/Cailin Peak GR.5mmHg LVOT Diameter2.3 (1.8-2.4cm)Doppler AVA3.88cm2 Pulmonic Valve V20.99m/s Tricuspid Valve TR Velocity2.67m/s [id number] Other Information Technically limited study due to body habitus. Conclusion lvef 55% mild LVH moderate Left atrium enlarged mild mitral stenosis mean gradient 2 mmhg mil mitral regurg
[2025-04-15] MEDS ORDERED: ATOR40TA52 PO (14:11)
[2025-04-15] MEDS ORDERED: ASPI1TAB19 PO (14:12)
--- NOTE | 2025-04-15 17:14 | DVHDSRES ---
Discharge Summary Date of Admission Resident Creating Document: ERVIN BECERRA RESIDENT Apr 13, 2025 at 21:07 Date of Discharge: Apr 15, 2025 Admitting Diagnosis acute chest pain, rule out ACS Labs/Diagnostic Data: Laboratory Results Test 04/15/25 07:48 04/15/25 06:35 04/13/25 16:14 04/13/25 12:58 White Blood Count 4.6 10^3/uL (4.4-10.8) Red Blood Count 4.25 10^6/uL (4.5-5.90) Hemoglobin 11.7 g/dL (13.5-17.5) Hematocrit 35.3 % (41.0-53.0) Mean Corpuscular Volume 83.1 fL (80.0-100.0) Mean Corpuscular Hemoglobin 27.5 pg (28.0-32.0) Mean Corpuscular Hemoglobin Concent 33.1 g/dL (32.0-36.0) Red Cell Distribution Width 16.3 % (11.8-14.3) Platelet Count 161 10^3/uL (140-450) Mean Platelet Volume 8.7 fL (6.9-10.8) Neutrophils (%) (Auto) 65.3 % (37.0-80.0) Lymphocytes (%) (Auto) 23.6 % (10.0-50.0) Monocytes (%) (Auto) 8.1 % (0.0-12.0) Eosinophils (%) (Auto) 2.3 % (0.0-7.0) Basophils (%) (Auto) 0.7 % (0.0-2.0) Neutrophils # (Auto) 3.0 10 ^3/uL (1.6-8.6) Lymphocytes # (Auto) 1.1 10 ^3/uL (0.4-5.4) Monocytes # (Auto) 0.4 10 ^3/uL (0-1.3) Eosinophils # (Auto) 0.1 10 ^3/uL (0-0.8) Basophils # (Auto) 0 10 ^3/uL (0-0.2) Nucleated Red Blood Cells 0.3 % Sodium Level 141 mmol/L (136-145) Potassium Level 3.9 mmol/L (3.5-5.1) Chloride Level 108 mmol/L (98-107) Carbon Dioxide Level 24 mmol/L (20-31) Anion Gap 9 (5-15) Blood Urea Nitrogen 17 mg/dL (9-23) Creatinine 1.18 mg/dL (0.700-1.30) Glomerular Filtration Rate Calc 66 mL/min (>90) BUN/Creatinine Ratio 14.4 (10.0-20.0) Serum Glucose 113 mg/dL (74-106) Calcium Level 8.8 mg/dL (8.7-10.4) Total Bilirubin 0.6 mg/dL (0.2-1.0) Aspartate Amino Transferase (AST) 51 U/L (13-40) Alanine Aminotransferase (ALT) 56 U/L (7-40) Alkaline Phosphatase 61 U/L (46-116) Total Protein 6.2 g/dL (5.7-8.2) Albumin 3.8 g/dL (3.2-4.8) POC Glucose 116 mg/dl (70-106) Troponin I High Sensitivity 87 ng/L (</=54) Prothrombin Time 10.9 sec (9.3-11.8) Prothrombin Time INR 1.03 (0.9-1.15) Activated Partial Thromboplast Time 28.1 SEC (24.5-34.5) Hemoglobin A1c 8.4 % A1C (<5.7) Magnesium Level 2.1 mg/dL (1.6-2.6) B-Type Natriuretic Peptide 277.03 pg/mL (0-100) Triglycerides Level 151 mg/dL (< 150) Cholesterol Level 121 mg/dL (< 200) LDL Cholesterol 68 mg/dL (< 100) HDL Cholesterol 36 mg/dL (40-59) Thyroid Stimulating Hormone (TSH) 1.73 uIU/mL (0.55-4.78) Other Laboratory Tests 04/15/25 07:48 Brief Hx & Hospital Course: This is a 70-year-old male past medical history of diabetes, hypertension, pleural effusion who came to the ER with the chief complaint of chest pain since 2 days. The patient stated that the pain was in the lower substernal area going to the epigastrium but not radiating to the jaw or arm. He had the pain continuously for 2 days and described it as a pressure-like sensation. It had no aggravating or relieving factors. It was not associated with any symptoms like fever or chills. He also complained of mild shortness of breath. EKG showed sinus rhythm with right bundle-branch block with troponins in the 80s. Cardiolite stress test was positive for ischemia. Patient underwent Echo which showed LVEF of 55% with mild LVH, mild MS, mild MR and moderate LA enlarged. Patient underwent left heart catheterisation which showed mild CAD and patient was cleared for discharge by cardiology. His vitals remained stable for discharge and he was asked to follow-up in discharge Clinic. All medications and recommendations were thoroughly explained and the patient stated understanding of the same. A detailed discussion was held with the patient at bedside where all questions were answered and concerns were addressed. Past medical history: renal cell carcinoma post right nephrectomy, diabetes mellitus, hypertension, dyslipidemia Past surgical history: right Nephrectomy, hernia repair Past Hospitalization: may 2024 for pleural effusion and respiratory issues Social & Personal history: Lives at home with family Smoking: Quit smoking 1 year back Alcohol: occasionally drugs:denies Allergies: No known allergies Patient seen and examined at bedside. Patient is alert and oriented to time, place person and responding to all questions. Eyes: No Pain, No Vision change, No Conjunctivae inflammation, No Eyelid inflammation, No Other, No Redness ENT: No Ear pain, No Ear discharge, No Nose pain, No Nose discharge, No Nose congestion, No Mouth pain, No Mouth swelling, No Throat pain, No Throat swelling Cardiovascular: no Chest Pain, No Palpitations, No Orthopnea, No Paroxysmal No Dyspnea, No Edema, No Lt Headedness Respiratory: No Cough, No Dry, no Shortness of breath, No SOB with exertion, No Wheezing, No Hemoptysis, No Pleuritic Pain, No Sputum Gastrointestinal: No Nausea, No Vomiting, No Abdominal Pain, No Diarrhea, No Constipation, No Melena, No Hematochezia Genitourinary: No Dysuria, No Frequency, No Incontinence, No Hematuria, No Retention General Appearance: Cooperative. Well developed. Well nourished. NAD Head Exam: Normal inspection Neck Exam: Normal inspection. Non-tender. Normal alignment Pulmonary/Respiratory: Chest non-tender. Clear bilateral breath sounds, no crackles, no wheezing. Cardiovascular/Chest: Regular rate and rhythm. No murmurs. No JVD. Peripheral Pulses: 2+ Radial (R). 2+ Radial (L). 2+ Pedal (R). 2+ Pedal (L) Abdominal Exam: Normal bowel sounds. Soft. normal abdomen, no visible veins, Nontender. No hepatospenomegaly. No masses Ankle Exam: Negative ankle edema Lower extremities: Negative lower extremity edema Neuro/Mental Status: A&O x4. Coherent. Thoughts/Psych: Normal thought pattern. Appropriate mood and affect. Good judgement and insight Skin Exam: Normal inspection. Normal color. Warm. Dry Operations or Procedures 1. PROCEDURE(s): CWMM - CARDIOLITE MULTIPLE REASON: Chest pain ORDER NUMBER(s): [id number], ACCESSION NUMBER(s): [id number] APPROVED REPORT Exam: Nuclear Stress Test BMI: 0 Stress Test Details HR Max Heart Rate (APMHR): 149.018389 bpm Target HR (85% APMHR): 126.565812 bpm BP ECG Stress ECG Conclusion lve 49% no major ischemia noted RBBB on ecg arrhythmia noted TID noted on stress iaging, this can be concernign for multivessel CAD in some patients clinical correlate NM EXAM: Myocardial Perfusion REST/STRESS Imaging Protocol: Rest Tc-99m/Stress Tc-99m 1 day Resting Data Rest SPECT myocardial perfusion imaging was performed in supine position 60 minutes following the intravenous injection of 10.9 mCi of Tc-99m Sestamibi. Time of rest injection: 07:45 Date: 04/14/2025 Time of rest imagin:45 Date: 04/14/2025 Administration Route: IV Administration Site: Left Hand Pharmacologic Stress Pharmacologic stress test was performed by injecting Regadenoson 0.4 mg IV push followed by the intravenous injection of 30.4 mCi of Tc-99m Sestamibi. Time of stress injection: 09:15 Date: 04/14/2025 Time of stress imagin:15 Date: 04/14/2025 Administration Route: IV Administration Site: Left Hand The images were gated to evaluate regional wall motion and calculate left ventricular ejection fraction. Stress only was performed in the Supine position. Nuclear Conclusion Nuclear Findings: positive for ischemia lve 49% no major ischemia noted RBBB on ecg arrhythmia noted TID noted on stress iaging, this can be concernign for multivessel CAD in some patients clinical correlate SIGNED BY: MARK NICOLE MD SIGNED DATE/TIME: 04/14/25 1548 PROCEDURE(s): CXR1 - CHEST XRAY 1 VIEW REASON: cp ORDER NUMBER(s): [id number], ACCESSION NUMBER(s): [id number] CHEST RADIOGRAPH Indication: cp Technique: Single frontal view of the chest was obtained COMPARISON: XY CHEST PORTABLE on DOS: 05/28/24, XY CHEST XRAY 1 VIEW on DOS: 05/27/24, XY CHEST TWO VIEWS ROUTINE on DOS: 05/24/24, CHEST PORTABLE on DOS: 09/26/21, CHEST WITHOUT CONTRAST on DOS: 04/03/21 FINDINGS: Lines and Tubes: None Lungs: Clear Pleura: No effusion. No pneumothorax. Cardiomediastinal contours: Unremarkable Bones: Unremarkable IMPRESSION: No acute disease. 2.PROCEDURE(s): CXR1 - CHEST XRAY 1 VIEW REASON: cp ORDER NUMBER(s): [id number], ACCESSION NUMBER(s): [id number] CHEST RADIOGRAPH Indication: cp Technique: Single frontal view of the chest was obtained COMPARISON: XY CHEST PORTABLE on DOS: 05/28/24, XY CHEST XRAY 1 VIEW on DOS: 05/27/24, XY CHEST TWO VIEWS ROUTINE on DOS: 05/24/24, CHEST PORTABLE on DOS: 09/26/21, CHEST WITHOUT CONTRAST on DOS: 04/03/21 FINDINGS: Lines and Tubes: None Lungs: Clear Pleura: No effusion. No pneumothorax. Cardiomediastinal contours: Unremarkable Bones: Unremarkable IMPRESSION: No acute disease. 3.PROCEDURE(s): ECIDC - ECHO 2D MODE CARDIAC DOP REASON: Evaluate cardiac function ORDER NUMBER(s): [id number], ACCESSION NUMBER(s): [id number] APPROVED REPORT EXAM: Two-dimensional and M-mode echocardiogram with Doppler and color Doppler. Blood Pressure: 122/65 mmHg INDICATION evaluate cardiac function RISK FACTORS Obesity: Height: 5'11, Weight: 265 DIMENSIONS LVDd 5.8 (3.8-5.7cm) LA (2D) 5.1 (1.9-4.0cm) Aortic Root 3.6 (2.0- 3.7cm) LVDs 4.5 (2.5-4.0cm) LA (MM) (1.9-4.0cm) Aortic Cusp Exc 2.0 (1.5- 2.0cm) EF (%) 50.0 (55-70%) Rt. Atrium 4.3 (1.9-4.0cm) Asc. Aorta cm IVSd 1.1 (0.7-1.1cm) RV (D) 4.4 (1.8-2.4cm) PWd 1.1 (0.7-1.1cm) Mitral Valve Mitral Mitral Stenosis E wave 1.18m/s MV Mean GR. 2mmHg A wave 0.62m/s MV Peak GR. 99mmHg E/A ratio 1.9 2D MVA cm2 DECEL Time 204ms PRESS 1/2 Time ms Aortic Valve Aortic Valve Aortic Stenosis V1 0.99m/s AO Mean GR. 3mmHg V2 1.06m/s AO Peak GR. 5mmHg LVOT Diameter 2.3 (1.8-2.4cm) Doppler SANJAY 3.88cm2 Pulmonic Valve V2 0.99m/s Tricuspid Valve TR Velocity 2.67m/s RVSP 33mmHg Other Information Technically limited study due to body habitus. Conclusion lvef 55% mild LVH moderate Left atrium enlarged mild mitral stenosis mean gradient 2 mmhg mil mitral regurg SIGNED BY: MARK NICOLE MD SIGNED DATE/TIME: 04/15/25 1317 4.Operative Report [facility] PROCEDURE REPORT [place], [place] Date of Service: 04/15/25 Batch Or Continuous Still Operator: Mark Nicole MD PROCEDURES PERFORMED: Coronary angiogram, left heart catheterization, conscious sedation administration and supervision, less than 15 minutes; fluoroscopy use and interpretation. PREOPERATIVE DIAGNOSES: Abnormal stress test with CCS class 3 angina, POSTOP DIAGNOSIS: mild cad DESCRIPTION OF PROCEDURE: The patient or appropriate family signed informed consent understanding the risks, benefits and alternatives of the procedure, they wished to proceed. The patient was brought to the cardiac cathode washer in n.p.o. state. The patient was prepped in a sterile fashion. Sedation was used per cardiac cath protocol. I administered 2 mL of 2% lidocaine to the right wrist. With an antegrade front wall puncture. I cannulated the right radial artery and placed a 6-[place]awk Glidesheath slender. Next, an intra-arterial spasmolytic was administered. Next, a - 6French Barry catheter a and were used for coronary angiogram and LVEDP measurement and pressure pullback. At the completion of procedure, all guides and wires were removed, and there were no immediate complications. 5000 U of IV heparin given. FINDINGS: RCA: Moderate vessel off the right sinus of Valsalva, there is no severe flow limiting stenosis. dominant vessel. diffuse distal small vessel disease LEFT MAIN: Moderate size left main, it bifurcates into LAD and circumflex. CIRCUMFLEX: Moderate caliber vessel coming off the left main with no flow limiting stenosis. mild diffuse distal small vessel disease LAD: LAD is a moderate caliber vessel coming of the left main. mild diag1 and diag 2 plaque noted. diffuse luminal irregularities LVEDP of 6 mmhg CONCLUSIONS: 1. mild cad PLAN: Aggressive risk factor modification and medical management for the patient. MARK NICOLE MD Condition at Discharge: Stable Final Diagnosis/Problems List NSTEMI likely type I diabetes mellitus type 2,controlled MIKE likely due to VMN Dyslipidemia Discharge Disposition: Home Discharge Instruct/Medications Diet: Cardiac 2g Na,low cholest Activity: No Restrictions, As Tolerated Follow Up/Referral: follow up with pcp Scheduled Amlodipine Besylate (Amlodipine Besylate), 10 MG PO DAILY, (Reported) Aspirin (Aspirin), 81 MG PO DAILY Atorvastatin Calcium (Lipitor), 1 TAB PO BID, (Reported) Atorvastatin Calcium (Atorvastatin Calcium), 1 TAB PO DAILY Carvedilol (Carvedilol), 25 MG PO Q12HR, (Reported) Empagliflozin (Jardiance), 10 MG PO DAILY, (Reported) Furosemide (Lasix), 1 TAB PO DAILY Glipizide (Glipizide), 10 MG PO AC, (Reported) Hydralazine Hcl (Hydralazine Hcl), 50 MG PO TID, (Reported) Indapamide (Indapamide), 2.5 MG PO DAILY, (Reported) Irbesartan (Avapro), 300 MG PO DAILY, (Reported) Metformin Hydrochloride (Metformin Hcl), 1,000 MG PO IBID, (Reported) Omeprazole (Cvs Omeprazole), 20 MG PO DAILY, (Reported) Potassium Chloride (Klor-Con 8), 8 MEQ PO DAILY Discontinued Medications Hydrochlorothiazide (Hydrochlorothiazide), 25 MG PO DAILY, (Reported) Irbesartan (Irbesartan), 1 TAB PO DAILY, (Reported) Meclizine HCl (Meclizine Hydrochloride), 1 TAB PO TID PRN for dizziness, (Reported) Metoprolol Tartrate (Metoprolol Tartrate), 50 MG PO DAILY, (Reported) Discharge Statement: "Patient was advised to return to the ER or call 911 if any headaches, dizziness, shortness of breath, chest pain, abdominal pain, bleeding, fevers, or worsening of medical condition. Patient was counseled about treatment plan, medications, possible side effects, patientverbalized understanding. All questions were answered to the best of my ability. This discharge took greater then 30 minutes in planning, reviewing documentation, counseling the patient, and discussing with other team members." ASSESSMENT ASSESSMENT Assessment NSTEMI type I Date of Service: Apr 15, 2025 Billing Provider: AGA ABURTO MD Common Visit Codes: 90847-RJB/OBS DISCH DAY >30min ERVIN BECERRA RESIDENT Apr 15, 2025 17:14 AGA ABURTO MD Apr 17, 2025 20:27
--- NOTE | 2025-04-20 11:54 | ECG ---
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
== END 2025-04-15 20:25 | disposition home or self-care (01) | DRG 280 ==
LOC: ER 12:40 → OVERFLOW 21:07 → TELE-WESTW 22:15
PROVIDERS: ADMIT Internal Medicine Geriatric Medicine; ATTEND Internal Medicine
PROC: 4A023N7 Measurement of Cardiac Sampling and Pressure, Left Heart, Percutaneous Approach (ICD-10-PCS; principal; 2025-04-15)
PROC: B211YZZ Fluoroscopy of Multiple Coronary Arteries using Other Contrast (ICD-10-PCS; 2025-04-15)
PROC: B215YZZ Fluoroscopy of Left Heart using Other Contrast (ICD-10-PCS; 2025-04-15)
DX: I21.4 Non-ST elevation (NSTEMI) myocardial infarction (principal); N17.0 Acute kidney failure with tubular necrosis; I13.0 Hypertensive heart and chronic kidney disease with heart failure and stage 1 through stage 4 chronic kidney disease, or unspecified chronic kidney disease; E11.9 Type 2 diabetes mellitus without complications; I50.9 Heart failure, unspecified; Z68.36 Body mass index [BMI] 36.0-36.9, adult; E11.22 Type 2 diabetes mellitus with diabetic chronic kidney disease; N18.9 Chronic kidney disease, unspecified; E66.01 Morbid (severe) obesity due to excess calories; E78.5 Hyperlipidemia, unspecified; I25.10 Atherosclerotic heart disease of native coronary artery without angina pectoris; Z90.5 Acquired absence of kidney; Z87.891 Personal history of nicotine dependence; Z82.49 Family history of ischemic heart disease and other diseases of the circulatory system; Z85.528 Personal history of other malignant neoplasm of kidney; Z79.84 Long term (current) use of oral hypoglycemic drugs; I45.10 Unspecified right bundle-branch block
CPT/HCPCS: 36415; 71045; 78452; 80048; 80053; 80061; 82962; 83036; 83735; 83880; 84443; 84484; 85025; 85610; 85730; 86850; 86900; 86901; 87081; 93005; 93017; 93306; 93458; 96374; 96375; 99152; 99291; G0378; J1815; J2250; Q9967